=== PATIENT | female | born 1935 | race Caucasian/White ===

== ENCOUNTER 2018-11-05 08:20 | Inpatient (IN) | payer MEDICAID ==
[~2018-11-05] VITALS: Ht 144.8 cm; Wt 81.6 kg
[~2018-11-05 08:20] MED LIST: ACET325T53 PO; CAPT50TA3 PO; PRED20TA PO; [UNRECOGNIZED DRUG - MIXTURE] PO; [UNRECOGNIZED DRUG - OTHER] PO; [UNRECOGNIZED DRUG - OTHER] PO
--- NOTE | 2018-11-05 08:54 | NUR ---
PT BIB SON C/O SOB THAT STARTED AT 0300 TODAY, HX OF PNEUMONIA 1 MONTH AGO. ALERT AND ORIENTED X 4, KOREAN SPEAKING. DENIES ANY PAIN AT THIS TIME. HOOKED TO MONITOR AND PUT ON A GOWN. KEPT COMFORTABLE. WILL COTNINUE TO MONITOR ACCORDINGLY. AWAITING FOR MD FOR EVAL.
--- NOTE | 2018-11-05 08:55 | NUR ---
DR. LONG AT BEDSIDE FOR EVAL.
[2018-11-05] MEDS ORDERED: IPRATROPIUM NEB FS 0.5 MG/2.5 ML AMPUL.NEB NEB ONE (09:00)
[2018-11-05] MEDS ORDERED: ALBUTEROL FS 2.5 MG/3 ML VIAL.NEB CONTNEB ONE (09:00)
[2018-11-05 09:02] LABS: BASOPHILS # (AUTO) 0.1 /CMM (0.0-0.2); BASOPHILS % (AUTO) 0.4 % (0.0-2.0); EOSINOPHILS % (AUTO) 0.8 % (0.0-6.0); HEMATOCRIT 42 % (33-45); HEMOGLOBIN 13.5 g/dL (11.5-14.8); LYMPHOCYTES # (AUTO) 1.5 /CMM (0.8-4.8); LYMPHOCYTES % (AUTO) 10.1 % (20.0-44.0); MEAN CORPUSCULAR HGB CONC 32 g/dl (31.0-36.0); MEAN CORPUSCULAR VOLUME 87 fL (82-100); MONOCYTES # (AUTO) 1.3 /CMM (0.1-1.30); MONOCYTES % (AUTO) 8.4 % (2.0-12.0); NEUTROPHILS # (AUTO) 12.1 /CMM (1.8-8.9); NEUTROPHILS % (AUTO) 80.3 % (43.0-81.0); PLATELET COUNT (AUTO) 219 /CMM (150-450)
[2018-11-05 09:12] LABS: CALCIUM, SERUM 10.9 mg/dL (8.5-10.1); CARBON DIOXIDE 26 mmol/L (21-32); CHLORIDE 105 mmol/L (98-107); CREATININE 1.1 mg/dL (0.6-1.3); GLUCOSE 236 mg/dL (74-106); POTASSIUM 4.6 mmol/L (3.5-5.1); SODIUM SERUM 141 mmol/L (136-145); UREA NITROGEN, BLOOD 23 mg/dL (7-18)
[2018-11-05] MEDS ORDERED: IPRATROPIUM NEB FS 0.5 MG/2.5 ML AMPUL.NEB ONE (09:15)
[2018-11-05] MEDS ORDERED: ALBUTEROL FS 2.5 MG/3 ML VIAL.NEB ONE (09:15)
[2018-11-05 09:24] LABS: ALANINE AMINOTRANSFERASE 20 U/L (12-78); ALBUMIN 3.7 g/dL (3.4-5.0); ALKALINE PHOSPHATASE 59 U/L (46-116); ASPARTATE AMINOTRANSFERASE 17 U/L (15-37); B-TYPE NATRIURETIC PEPTIDE 1650 PG/ML (0-125); BILIRUBIN,DIRECT 0.1 mg/dL (0.0-0.2); BILIRUBIN,TOTAL 0.6 mg/dL (0.2-1.0); TOTAL PROTEIN, SERUM 7.6 g/dL (6.4-8.2)
--- NOTE | 2018-11-05 10:11 | NUR ---
CALLED FOR TELE BED
[2018-11-05] MEDS ORDERED: NIFE60TA69 PO (10:29)
[2018-11-05] MEDS ORDERED: NEBI5TAB8 PO (10:29)
[2018-11-05] MEDS ORDERED: GLIM1TAB2 PO (10:29)
[2018-11-05] MEDS ORDERED: FUROSEMIDE 40 MG/4 ML VIAL IV ONE (10:30)
[2018-11-05] MEDS ORDERED: FUROSEMIDE 40 MG/4 ML VIAL ONE (10:54)
--- NOTE | 2018-11-05 11:32 | NUR ---
REPORT GIVEN TO NICOLE LINDSEY FOR MAURICE , PT GOING TO ROOM 314-1T.
--- NOTE | 2018-11-05 12:21 | NUR ---
WHEELED PATIENT VIA GURNEY ACCOMPANIED BY RN AND EMT VIA ACLS PROTOCOL, IN NO APPARENT DISTRESS. GOING TO ROOM 314-1 T. SON AT BEDSIDE
[2018-11-05 12:30] VITALS: BP 114/61
--- NOTE | 2018-11-05 12:30 | NUR ---
ms rn received a new admission under dr. arreola, awake,alert,oriented x 3,Croatian speaking, came in w/ dx of chf,denies pain at this time,will monitor patient's condition.no sob noted.
--- NOTE | 2018-11-05 13:00 | NUR ---
ms rn son at bedside,all needs attended.
--- NOTE | 2018-11-05 14:00 | NUR ---
ms rn called dr. arreola for orders,awaiting for him to call back.
[2018-11-05 15:50] VITALS: BP 117/60
--- NOTE | 2018-11-05 18:00 | NUR ---
ms evan arreola called back w/ orders made and carried out.
--- NOTE | 2018-11-05 18:38 | NUR ---
ms rn on bed, no distress noted,all needs attended.
[2018-11-05] MEDS ORDERED: DEXTROSE 50%-WATER 50 ML DISP.SYRIN IV PRN (19:00)
[2018-11-05] MEDS ORDERED: FUROSEMIDE 20 MG/2 ML VIAL IV SCH (19:30)
[2018-11-05] MEDS: FUROSEMIDE 20 MG/2 ML VIAL IV SCH (19:48)
[2018-11-05 20:00] VITALS: BP 126/63
[2018-11-05] MEDS ORDERED: ENOXAPARIN SODIUM 30 MG/0.3 ML DISP.SYRIN SQ SCH (21:00)
[2018-11-05] MEDS: METOPROLOL TARTRATE 25 MG TABLET PO SCH (21:28)
[2018-11-05] MEDS ORDERED: IPRATROPIUM NEB FS 0.5 MG/2.5 ML AMPUL.NEB NEB PRN (21:30)
[2018-11-05] MEDS ORDERED: ENOXAPARIN SODIUM 40 MG/0.4 ML DISP.SYRIN SQ SCH (21:30)
[2018-11-05] MEDS ORDERED: CEFTRIAXONE 1 G VIAL ONE (21:43)
[2018-11-05] MEDS: CEFTRIAXONE 1 G in IV D5W 50 ML IV SCH (21:52)
[2018-11-05] MEDS: INSULIN REGULAR, HUMAN 100 UNIT/ML 3 ML VIAL SQ PRN (21:53)
[2018-11-05] MEDS: BLOOD SUGAR DIAGNOSTIC 1 EACH STRIP IN SCH (21:54)
[2018-11-05] MEDS: ALBUTEROL FS 2.5 MG/0.5 ML VIAL.NEB NEB SCH (23:09)
[2018-11-06] VITALS: BP 112/62
[2018-11-06] MEDS: FUROSEMIDE 20 MG/2 ML VIAL IV SCH ×2 (03:48→11:52)
[2018-11-06 04:00] VITALS: BP 134/77
[2018-11-06] MEDS: BLOOD SUGAR DIAGNOSTIC 1 EACH STRIP IN SCH ×4 (06:06→21:32)
--- NOTE | 2018-11-06 06:26 | NUR ---
MORTGAGE LOAN ORIGINATOR NOTES AWAKE & RESPONSIVE. NOT IN ANY DISTRESS. NO SOB NOTED. DENIES ANY PAIN OR DISCOMFORT AT THIS TIME. ON TELE SR @ 75 WITH IVF INFUSING WELL. MONITORED ACCORDINGLY. CALL LIGHT WITHIN REACH. BED IN LOWEST POSITION. SR UP X 3 WITH BED ALARM ON FOR SAFETY. WILL ENDORSE TO NEXT SHIFT.
--- NOTE | 2018-11-06 07:15 | NUR ---
TELE/RN OPENING NOTE THE PATIENT IS RECEIVED IN BED. PATIENT IS ALERT AND ORIENTED X4. PATIENT IS IN ROOM AIR AND DENIES SOB AT THIS TIME. RESPIRATION REGULAR AND UNLABORED. DENIES PAIN AT THIS TIME. THE PATIENT IN NO APPARENT DISTRESS. EXTERNAL TELE MONITOR READING IS SR 64. LAC G 2 PATENT AND SALINE LOCKED. VERBAL CUES ARE GIVEN TO KEEP SAFETY AWARENESS HIGH. BED LOW AND LOCKED. SIDE RAILS UP X3. CALL LIGHT WITHIN REACH. WILL CONTINUE TO MONITOR.
[2018-11-06 07:18] LABS: BASOPHILS # (AUTO) 0.1 /CMM (0.0-0.2); BASOPHILS % (AUTO) 0.7 % (0.0-2.0); EOSINOPHILS % (AUTO) 3.4 % (0.0-6.0); HEMATOCRIT 41 % (33-45); HEMOGLOBIN 13.5 g/dL (11.5-14.8); LYMPHOCYTES # (AUTO) 2.6 /CMM (0.8-4.8); LYMPHOCYTES % (AUTO) 29.1 % (20.0-44.0); MEAN CORPUSCULAR HGB CONC 33 g/dl (31.0-36.0); MEAN CORPUSCULAR VOLUME 87 fL (82-100); MONOCYTES % (AUTO) 10.7 % (2.0-12.0); NEUTROPHILS % (AUTO) 56.1 % (43.0-81.0); PLATELET COUNT (AUTO) 218 /CMM (150-450); RED BLOOD CELL COUNT(AUTO) 4.68 MIL/uL (4.0-5.2); WHITE BLOOD COUNT (AUTO) 8.9 K/uL (4.3-11.0)
[2018-11-06 07:23] LABS: ALANINE AMINOTRANSFERASE 21 U/L (12-78); ALBUMIN 3.5 g/dL (3.4-5.0); ALKALINE PHOSPHATASE 61 U/L (46-116); ASPARTATE AMINOTRANSFERASE 20 U/L (15-37); BILIRUBIN,TOTAL 0.5 mg/dL (0.2-1.0); CALCIUM, SERUM 11.2 mg/dL (8.5-10.1); CARBON DIOXIDE 31 mmol/L (21-32); CHLORIDE 103 mmol/L (98-107); CREATININE 1.1 mg/dL (0.6-1.3); GLUCOSE 134 mg/dL (74-106); MAGNESIUM 1.5 mg/dL (1.8-2.4); POTASSIUM 3.8 mmol/L (3.5-5.1); SODIUM SERUM 142 mmol/L (136-145); TOTAL PROTEIN, SERUM 7.5 g/dL (6.4-8.2); UREA NITROGEN, BLOOD 26 mg/dL (7-18)
[2018-11-06 07:26] LABS: IRON, SERUM 89 ug/dl (50-175)
[2018-11-06] MEDS: ALBUTEROL FS 2.5 MG/0.5 ML VIAL.NEB NEB SCH ×3 (07:56→23:30)
[2018-11-06 08:00] VITALS: BP 116/54
[2018-11-06] MEDS: METOPROLOL TARTRATE 25 MG TABLET PO SCH ×2 (08:28→21:31)
[2018-11-06] MEDS ORDERED: RAMIPRIL 5 MG CAPSULE PO SCH (09:00)
[2018-11-06] MEDS: Magnesium 1GM/D5W 100ML PREMIX 100 ML IV SCH ×2 (11:05→12:11)
--- NOTE | 2018-11-06 11:05 | NUR ---
TELE/RN NOTE PER DR CARTER ADMINISTER 1G IV AT 100ML/HR.
[2018-11-06 12:00] VITALS: BP 123/61
[2018-11-06] MEDS: INSULIN REGULAR, HUMAN 100 UNIT/ML 3 ML VIAL SQ PRN ×2 (12:19→22:52)
--- NOTE | 2018-11-06 12:24 | NUR ---
TELE/RN NOTE BLOOD SUGAR 161 AND 3 UNITS OF REGULAR INSULIN IS ADMINISTERED. PATIENT EATING LUNCH.
[2018-11-06 16:00] VITALS: BP 150/79
[2018-11-06] MEDS ORDERED: RIVAROXABAN 15 MG TABLET PO SCH (17:00)
--- NOTE | 2018-11-06 17:27 | NUR ---
TELE/RN NOTE LAC G20 DISLODGED. INSERTED NEW IV ON RIGHT WRIST G 22 WITH GOOD BLOW FLOW. NO S/S INFILTRATION. SALINE LOCKED. THE PATIENT TOLERATED THE INSERTION WELL.
[2018-11-06] MEDS ORDERED: FUROSEMIDE 20 MG/2 ML VIAL IV SCH (18:00)
--- NOTE | 2018-11-06 18:13 | NUR ---
TELE/RN NOTE THE PATIENT ALERT AND ORIENTED X4 AND SPEAKS INDONESIAN. THE PATIENT ABLE TO MAKE NEEDS KNOWN VERBALLY. DENIES PAIN. RECEIVING OXYGEN AT 2L/MIN VIA NASAL CANNULA AND SATURATION AT 97%. DENIES SOB. RIGHT WRIST G 22 PATENT AND SALINE LOCKED. BED LOW AND LOCKED. SIDE RAILS UP X3. CALL LIGHT WITHIN REACH. WILL ENDORSE TO SEW OUT OPERATOR.
--- NOTE | 2018-11-06 20:12 | NUR ---
Patients speaks Nepali, she lives with family in an apartment with elevator access. She is ambulatory and independent with adl's, has good family support. Son in law reports that patient home O2 was taken back by the vendor. Family will provide ride when discharge. Addendum: 11/06/18 at 2012 by TAMEKA BRIONES RN Amended: Links added.
[2018-11-06 20:24] VITALS: BP 126/58
[2018-11-06] MEDS: CEFTRIAXONE 1 G in IV D5W 50 ML IV SCH (21:32)
[2018-11-06] MEDS ORDERED: ATORVASTATIN 10 MG TABLET PO SCH (22:00)
[2018-11-07] VITALS: BP 134/58
[2018-11-07 04:00] VITALS: BP 142/67
[2018-11-07] MEDS: BLOOD SUGAR DIAGNOSTIC 1 EACH STRIP IN SCH (06:06)
--- NOTE | 2018-11-07 06:17 | NUR ---
WEB MANAGER NOTES AWAKE & RESPONSIVE. NOT IN ANY DISTRESS. NO SOB NOTED. DENIES ANY PAIN OR DISCOMFORT AT THIS TIME. ON TELE SR @ 64 WITH IV-HL PATENT & INTACT. MONITORED ACCORDINGLY. CALL LIGHT WITHIN REACH. BED IN LOWEST POSITION. SR UP X 3 WITH BED ALARM ON FOR SAFETY. WILL ENDORSE TO NEXT SHIFT.
[2018-11-07 07:21] LABS: BASOPHILS % (AUTO) 0.5 % (0.0-2.0); EOSINOPHILS % (AUTO) 3.1 % (0.0-6.0); HEMATOCRIT 41 % (33-45); HEMOGLOBIN 13.6 g/dL (11.5-14.8); LYMPHOCYTES # (AUTO) 2.1 /CMM (0.8-4.8); LYMPHOCYTES % (AUTO) 24.3 % (20.0-44.0); MEAN CORPUSCULAR HGB CONC 33 g/dl (31.0-36.0); MEAN CORPUSCULAR VOLUME 87 fL (82-100); MONOCYTES # (AUTO) 0.9 /CMM (0.1-1.30); MONOCYTES % (AUTO) 9.9 % (2.0-12.0); NEUTROPHILS # (AUTO) 5.4 /CMM (1.8-8.9); NEUTROPHILS % (AUTO) 62.2 % (43.0-81.0); PLATELET COUNT (AUTO) 219 /CMM (150-450); RED BLOOD CELL COUNT(AUTO) 4.72 MIL/uL (4.0-5.2); WHITE BLOOD COUNT (AUTO) 8.6 K/uL (4.3-11.0)
[2018-11-07 07:36] LABS: ALANINE AMINOTRANSFERASE 20 U/L (12-78); ALBUMIN 3.4 g/dL (3.4-5.0); ALKALINE PHOSPHATASE 53 U/L (46-116); ASPARTATE AMINOTRANSFERASE 16 U/L (15-37); B-TYPE NATRIURETIC PEPTIDE 416 PG/ML (0-125); BILIRUBIN,TOTAL 0.4 mg/dL (0.2-1.0); CALCIUM, SERUM 10.9 mg/dL (8.5-10.1); CARBON DIOXIDE 30 mmol/L (21-32); CHLORIDE 104 mmol/L (98-107); CREATININE 1.2 mg/dL (0.6-1.3); GLUCOSE 146 mg/dL (74-106); POTASSIUM 3.9 mmol/L (3.5-5.1); SODIUM SERUM 142 mmol/L (136-145); TOTAL PROTEIN, SERUM 7.4 g/dL (6.4-8.2); UREA NITROGEN, BLOOD 33 mg/dL (7-18)
[2018-11-07] MEDS: ALBUTEROL FS 2.5 MG/0.5 ML VIAL.NEB NEB SCH (07:49)
[2018-11-07 08:00] VITALS: BP 106/59
--- NOTE | 2018-11-07 08:00 | NUR ---
tele process safety management engineer: initial assessment received pt in bed up and about in room. no c/o sob, chest pain, or any discomfort. pt for d'c planning home today, awaiting md order. instructed to call for assistance. will monitor.
[2018-11-07 08:19] VITALS: BP 106/59
[2018-11-07] MEDS: METOPROLOL TARTRATE 25 MG TABLET PO SCH (08:19)
[2018-11-07] MEDS ORDERED: METO25TA20 PO (09:00)
[2018-11-07] MEDS ORDERED: ATOR10TA PO (09:00)
[2018-11-07] MEDS ORDERED: FURO20TA4 PO (09:00)
[2018-11-07] MEDS ORDERED: Blood Sugar Diagnostic IN (09:00)
[2018-11-07] MEDS ORDERED: FUROSEMIDE 20 MG TABLET PO SCH (09:00)
[2018-11-07] MEDS ORDERED: Rivaroxaban PO (09:00)
[2018-11-07] MEDS ORDERED: LOSA1TAB9 PO (09:00)
--- NOTE | 2018-11-07 09:00 | NUR ---
m/s continuous washer operator: md visit seen and examined by dr. arreola with order to d'c home. order acknowledged. pt aware and family to pick her up.
[2018-11-07] MEDS ORDERED: LORA-259 PO (09:08)
[2018-11-07] MEDS ORDERED: CLON0.1T PO (09:08)
[2018-11-07] MEDS ORDERED: AMLO5TAB4 PO (09:08)
[2018-11-07] MEDS ORDERED: ACET325T53 MC (09:08)
--- NOTE | 2018-11-07 11:10 | NUR ---
m/s analysis analyst: notes son here early to pick her up. pt getting ready.
--- NOTE | 2018-11-07 11:30 | NUR ---
m/s casino runner: d'c instructions discharged instructions given by saman to son and pt; both verbalized understanding and will f/u with dr. terry [place] [address] arreola in one to two weeks. son will make appointment as stated. h/l removed with tip intact with no bleeding, no redness, and no swelling noted.
--- NOTE | 2018-11-07 11:40 | NUR ---
m/s admissions manager: discharged discharged home in stable condition with all d'c papers, prescriptions, and valuables via private car, accompanied by son.
== END 2018-11-07 11:45 | disposition home or self-care (01) | DRG 133 ==
LOC: ER 08:21 → TELE 11:47 → MED 11-07 08:18
PROVIDERS: ADMIT Family Medicine; ATTEND Family Medicine
DX: J96.01 Acute respiratory failure with hypoxia (principal); I50.33 Acute on chronic diastolic (congestive) heart failure; E11.22 Type 2 diabetes mellitus with diabetic chronic kidney disease; D68.59 Other primary thrombophilia; E83.42 Hypomagnesemia; I48.0 Paroxysmal atrial fibrillation; I13.0 Hypertensive heart and chronic kidney disease with heart failure and stage 1 through stage 4 chronic kidney disease, or unspecified chronic kidney disease; Q61.3 Polycystic kidney, unspecified; J44.9 Chronic obstructive pulmonary disease, unspecified; N18.9 Chronic kidney disease, unspecified; E78.5 Hyperlipidemia, unspecified; I25.10 Atherosclerotic heart disease of native coronary artery without angina pectoris; M85.80 Other specified disorders of bone density and structure, unspecified site; Z88.8 Allergy status to other drugs, medicaments and biological substances; Z79.4 Long term (current) use of insulin; R00.1 Bradycardia, unspecified; H91.90 Unspecified hearing loss, unspecified ear; G47.33 Obstructive sleep apnea (adult) (pediatric); J40 Bronchitis, not specified as acute or chronic; Z91.14 Patient's other noncompliance with medication regimen
CPT/HCPCS: 36415; 71045-TC; 80048-TC; 80053-TC; 80076-TC; 82962-TC; 83540-TC; 83735-TC; 83880; 84484-TC; 85025-TC; 85730-TC; 87040-TC; 87081-TC; A4606; G0378; J0696; J1650; J1815; J1940; J3475; J7050; J7060; Z7610

== ENCOUNTER 2019-05-09 23:46 | Emergency (ER) | payer BC, MEDICAID ==
[~2019-05-09] VITALS: Ht 152.4 cm; Wt 89.8 kg
[~2019-05-09 23:46] MED LIST changes: +ACET325T53 MC; -ACET325T53 PO; +AMLO5TAB4 PO; +ATOR10TA PO; +Blood Sugar Diagnostic IN; -CAPT50TA3 PO; +CLON0.1T PO; +FURO20TA4 PO; +GLIM1TAB2 PO; +LORA-259 PO; +LOSA1TAB9 PO; +METO25TA20 PO; +NEBI5TAB8 PO; +NIFE60TA69 PO; -PRED20TA PO; +Rivaroxaban PO; -[UNRECOGNIZED DRUG - MIXTURE] PO; -[UNRECOGNIZED DRUG - OTHER] PO
--- NOTE | 2019-05-10 00:07 | NUR ---
PT BIBFAMILY C/O SOB/CP WITH COUGH AND CONGESTION/SORE THROAT X 1 DAY. PT AOX4. SHALLOW BREATHING NOTED. PT ON MONITOR IN BED 4 WITH FAMILY AT BEDSIDE. WILL CONTINUE TO MONITOR.
--- NOTE | 2019-05-10 00:22 | NUR ---
TECH AT BEDSIDE FOR EKG
--- NOTE | 2019-05-10 00:29 | NUR ---
BLOOD DRAWN AND GIVEN TO LAB. INFLUENZA AND STREP SWABS SENT.
--- NOTE | 2019-05-10 00:30 | NUR ---
RADIOLOGY AT BEDSIDE FOR XRAY
[2019-05-10 00:32] LABS: BASOPHILS # (AUTO) 0.1 /CMM (0.0-0.2); BASOPHILS % (AUTO) 0.6 % (0.0-2.0); EOSINOPHILS % (AUTO) 1.5 % (0.0-6.0); HEMATOCRIT 38 % (33-45); HEMOGLOBIN 12.9 g/dL (11.5-14.8); LYMPHOCYTES # (AUTO) 2.1 /CMM (0.8-4.8); LYMPHOCYTES % (AUTO) 16.2 % (20.0-44.0); MEAN CORPUSCULAR HGB CONC 34 g/dl (31.0-36.0); MEAN CORPUSCULAR VOLUME 88 fL (82-100); MONOCYTES % (AUTO) 7.8 % (2.0-12.0); NEUTROPHILS # (AUTO) 9.5 /CMM (1.8-8.9); NEUTROPHILS % (AUTO) 73.9 % (43.0-81.0); PLATELET COUNT (AUTO) 206 /CMM (150-450); RED BLOOD CELL COUNT(AUTO) 4.35 MIL/uL (4.0-5.2); WHITE BLOOD COUNT (AUTO) 12.8 K/uL (4.3-11.0)
[2019-05-10 00:52] LABS: CALCIUM, SERUM 10.6 mg/dL (8.5-10.1); CARBON DIOXIDE 26 mmol/L (21-32); CHLORIDE 107 mmol/L (98-107); CREATININE 1.1 mg/dL (0.6-1.3); GLUCOSE 159 mg/dL (74-106); POTASSIUM 4.6 mmol/L (3.5-5.1); SODIUM SERUM 142 mmol/L (136-145); UREA NITROGEN, BLOOD 32 mg/dL (7-18)
[2019-05-10 01:00] LABS: ALANINE AMINOTRANSFERASE 25 U/L (12-78); ALBUMIN 3.5 g/dL (3.4-5.0); ALKALINE PHOSPHATASE 56 U/L (46-116); ASPARTATE AMINOTRANSFERASE 20 U/L (15-37); B-TYPE NATRIURETIC PEPTIDE 341 PG/ML (0-125); BILIRUBIN,TOTAL 0.4 mg/dL (0.2-1.0); TOTAL PROTEIN, SERUM 7.5 g/dL (6.4-8.2)
[2019-05-10 02:46] VITALS: BP 144/79
--- NOTE | 2019-05-10 02:52 | NUR ---
Patient discharged to home in stable condition. Written and verbal after care instructions given. Patient verbalizes understanding of instruction.IV removed. Catheter intact and site benign. Pressure and 4x4 applied to site. No bleeding noted. PT AMBULATORY WITH STEADY GAIT ACCOMPANIED BY FAMILY.
[2019-05-19] MEDS ORDERED: Digoxin PO (10:58)
[2019-05-19] MEDS ORDERED: DILT180C66 PO (10:58)
[2019-06-16] MEDS ORDERED: DILT240C88 PO (13:40)
[2019-06-16] MEDS ORDERED: METO50TA16 PO (13:40)
== END 2019-05-10 03:08 | disposition home or self-care (01) ==
LOC: ER 23:53
DX: J06.9 Acute upper respiratory infection, unspecified (principal); I10 Essential (primary) hypertension; E11.9 Type 2 diabetes mellitus without complications; Z98.890 Other specified postprocedural states; Z88.8 Allergy status to other drugs, medicaments and biological substances; Z79.899 Other long term (current) drug therapy
CPT/HCPCS: 36415; 71045-TC; 80048-TC; 80076-TC; 83880; 84484-TC; 85025-TC; 85730-TC; 86403-TC; 87070-TC; 87400

== ENCOUNTER 2019-05-13 00:54 | Inpatient (IN) | payer OTHER, BC ==
[~2019-05-13] VITALS: Ht 142.2 cm; Wt 86.6 kg
[2019-05-13] MEDS ORDERED: IPRATROPIUM NEB FS 0.5 MG/2.5 ML AMPUL.NEB ONE (01:20)
[2019-05-13] MEDS ORDERED: ALBUTEROL FS 2.5 MG/3 ML VIAL.NEB ONE (01:20)
[2019-05-13 01:25] LABS: BASOPHILS # (AUTO) 0.1 /CMM (0.0-0.2); BASOPHILS % (AUTO) 0.7 % (0.0-2.0); EOSINOPHILS % (AUTO) 2.1 % (0.0-6.0); HEMATOCRIT 38 % (33-45); HEMOGLOBIN 12.4 g/dL (11.5-14.8); LYMPHOCYTES # (AUTO) 1.9 /CMM (0.8-4.8); LYMPHOCYTES % (AUTO) 13.8 % (20.0-44.0); MEAN CORPUSCULAR HGB CONC 33 g/dl (31.0-36.0); MEAN CORPUSCULAR VOLUME 88 fL (82-100); MONOCYTES # (AUTO) 1.2 /CMM (0.1-1.30); MONOCYTES % (AUTO) 8.4 % (2.0-12.0); NEUTROPHILS # (AUTO) 10.4 /CMM (1.8-8.9); PLATELET COUNT (AUTO) 189 /CMM (150-450); RED BLOOD CELL COUNT(AUTO) 4.27 MIL/uL (4.0-5.2); WHITE BLOOD COUNT (AUTO) 13.9 K/uL (4.3-11.0)
[2019-05-13] MEDS ORDERED: IPRATROPIUM NEB FS 0.5 MG/2.5 ML AMPUL.NEB NEB ONE (01:30)
[2019-05-13] MEDS ORDERED: ALBUTEROL FS 2.5 MG/3 ML VIAL.NEB CONTNEB ONE (01:30)
[2019-05-13 01:35] LABS: CALCIUM, SERUM 10.4 mg/dL (8.5-10.1); CARBON DIOXIDE 23 mmol/L (21-32); CHLORIDE 108 mmol/L (98-107); CREATININE 1.1 mg/dL (0.6-1.3); GLUCOSE 180 mg/dL (74-106); POTASSIUM 4.2 mmol/L (3.5-5.1); SODIUM SERUM 142 mmol/L (136-145); UREA NITROGEN, BLOOD 31 mg/dL (7-18)
[2019-05-13 01:48] LABS: ALANINE AMINOTRANSFERASE 21 U/L (12-78); ALBUMIN 3.3 g/dL (3.4-5.0); ALKALINE PHOSPHATASE 60 U/L (46-116); ASPARTATE AMINOTRANSFERASE 15 U/L (15-37); B-TYPE NATRIURETIC PEPTIDE 690 PG/ML (0-125); BILIRUBIN,DIRECT 0.1 mg/dL (0.0-0.2); BILIRUBIN,TOTAL 0.3 mg/dL (0.2-1.0); TOTAL PROTEIN, SERUM 7.4 g/dL (6.4-8.2)
[2019-05-13 04:05] VITALS: BP 133/77
[2019-05-13 04:50] LABS: ABG BASE EXCESS -1.6 mmol/L; ABG OXYGEN SATURATION 92.5 % (92.0-98.5); ABG PCO2 42.6 mmHg (35.0-45.0); ABG PH 7.364 (7.350-7.450); ABG PO2 63.2 mmHg (75.0-100.0); AaDO2 35.5 mmHg; COHb 0.3 % (0.5-1.5); MetHb 0.2 % (0.0-1.5); SITE, ABG Left Radial; VENT MODE, BG room air
[2019-05-13 08:00] VITALS: BP 146/74
[2019-05-13] MEDS: GLIMEPIRIDE 1 MG TABLET PO SCH (08:43)
[2019-05-13] MEDS: AMLODIPINE BESYLATE 5 MG TABLET PO SCH (08:43)
[2019-05-13] MEDS: HYDROCHLOROTHIAZIDE 25 MG TABLET PO SCH (08:44)
[2019-05-13] MEDS: LOSARTAN POTASSIUM 50 MG TABLET PO SCH (08:44)
[2019-05-13] MEDS ORDERED: ALBUTEROL FS 2.5 MG/0.5 ML VIAL.NEB NEB SCH ×3 (09:00→13:30)
[2019-05-13] MEDS ORDERED: METOPROLOL TARTRATE 25 MG TABLET PO SCH (09:00)
[2019-05-13] MEDS ORDERED: LORAZEPAM 1 MG TABLET PO SCH (09:00)
[2019-05-13] MEDS ORDERED: NIFEdipine XL 60 MG TAB PO SCH (09:00)
[2019-05-13] MEDS ORDERED: FUROSEMIDE 40 MG/4 ML VIAL IV SCH (09:00)
[2019-05-13] MEDS ORDERED: IPRATROPIUM NEB FS 0.5 MG/2.5 ML AMPUL.NEB NEB SCH (10:00)
[2019-05-13] MEDS: methylPREDNISolone SOD SUCC 125 MG/2ML VIAL IV SCH ×3 (10:35→20:00)
[2019-05-13] MEDS ORDERED: LEVOFLOXACIN (500MG) 500 MG TABLET PO ONE (11:00)
[2019-05-13] MEDS ORDERED: DEXTROSE 50%-WATER 50 ML DISP.SYRIN IV PRN (11:00)
[2019-05-13] MEDS: BLOOD SUGAR DIAGNOSTIC 1 EACH STRIP IN SCH ×3 (11:30→21:35)
[2019-05-13] MEDS ORDERED: diphenhydrAMINE HCL 25 MG CAPSULE PO STA (12:18)
[2019-05-13] MEDS: AZITHROMYCIN 250 MG TABLET PO SCH (13:11)
[2019-05-13] MEDS: CEFTRIAXONE 1 G in IV D5W 50 ML IV SCH (13:24)
[2019-05-13] MEDS: INSULIN REGULAR, HUMAN 100 UNIT/ML 3 ML VIAL SQ PRN ×3 (13:26→21:42)
[2019-05-13] MEDS: IPRATROPIUM NEB FS 0.5 MG/2.5 ML AMPUL.NEB NEB SCH ×3 (15:53→22:53)
[2019-05-13] MEDS: ALBUTEROL FS 2.5 MG/0.5 ML VIAL.NEB NEB SCH ×3 (15:54→22:53)
[2019-05-13 16:00] VITALS: BP 120/63
[2019-05-13] MEDS: CLONIDINE HCL 0.1 MG TABLET PO SCH (17:32)
[2019-05-13] MEDS: RIVAROXABAN 15 MG TABLET PO SCH (17:32)
[2019-05-13 20:00] VITALS: BP 117/52
[2019-05-13 20:05] VITALS: BP 117/52
[2019-05-13] MEDS: ATORVASTATIN 10 MG TABLET PO SCH (21:11)
[2019-05-14 00:58] LABS: APPEARANCE,URINE TURBID (CLEAR); BILIRUBIN,URINE NEGATIVE (NEGATIVE); BLOOD, URINE TRACE Ery/uL (NEGATIVE); COLOR,URINE YELLOW (YELLOW); KETONES,URINE TRACE (NEGATIVE); LEUKOCYTE ESTERASE ,URINE 1+ (NEGATIVE); NITRITE, URINE NEGATIVE (NEGATIVE); PH,URINE 5.5 (5.0-8.0); PROTEIN,URINE 2+ mg/dl (NEGATIVE); UGLUCOSE 1+ mg/dL (NEGATIVE)
[2019-05-14 01:00] LABS: BACTERIA,URINE Few /HPF (None Seen); SQUAMOUS EPITHELIAL CELL,UR Few /HPF (None Seen); URINE AMORPHOUS URATE Many /HPF (None Seen)
[2019-05-14] MEDS: ALBUTEROL FS 2.5 MG/0.5 ML VIAL.NEB NEB SCH ×5 (03:14→19:50)
[2019-05-14] MEDS: IPRATROPIUM NEB FS 0.5 MG/2.5 ML AMPUL.NEB NEB SCH ×5 (03:14→19:50)
[2019-05-14] MEDS: methylPREDNISolone SOD SUCC 125 MG/2ML VIAL IV SCH ×3 (04:04→20:11)
[2019-05-14] MEDS: BLOOD SUGAR DIAGNOSTIC 1 EACH STRIP IN SCH ×4 (06:03→21:10)
[2019-05-14] MEDS: INSULIN REGULAR, HUMAN 100 UNIT/ML 3 ML VIAL SQ PRN ×4 (06:39→21:20)
[2019-05-14 06:59] LABS: HEMATOCRIT 37 % (33-45); HEMOGLOBIN 12.3 g/dL (11.5-14.8); LYMPHOCYTES # (AUTO) 0.7 /CMM (0.8-4.8); MEAN CORPUSCULAR HGB CONC 33 g/dl (31.0-36.0); MEAN CORPUSCULAR VOLUME 88 fL (82-100); MONOCYTES # (AUTO) 0.2 /CMM (0.1-1.30); MONOCYTES % (AUTO) 1.6 % (2.0-12.0); NEUTROPHILS # (AUTO) 12.3 /CMM (1.8-8.9); NEUTROPHILS % (AUTO) 93.4 % (43.0-81.0); PLATELET COUNT (AUTO) 199 /CMM (150-450); RED BLOOD CELL COUNT(AUTO) 4.23 MIL/uL (4.0-5.2); WHITE BLOOD COUNT (AUTO) 13.2 K/uL (4.3-11.0)
[2019-05-14 07:24] LABS: ALANINE AMINOTRANSFERASE 20 U/L (12-78); ALBUMIN 3.2 g/dL (3.4-5.0); ALKALINE PHOSPHATASE 51 U/L (46-116); ASPARTATE AMINOTRANSFERASE 14 U/L (15-37); B-TYPE NATRIURETIC PEPTIDE 980 PG/ML (0-125); BILIRUBIN,TOTAL 0.3 mg/dL (0.2-1.0); CALCIUM, SERUM 10.9 mg/dL (8.5-10.1); CARBON DIOXIDE 24 mmol/L (21-32); CHLORIDE 106 mmol/L (98-107); CREATININE 1.9 mg/dL (0.6-1.3); GLUCOSE 256 mg/dL (74-106); MAGNESIUM 1.7 mg/dL (1.8-2.4); PHOSPHORUS 3.7 mg/dL (2.5-4.9); POTASSIUM 4.3 mmol/L (3.5-5.1); SODIUM SERUM 140 mmol/L (136-145); TOTAL PROTEIN, SERUM 7.1 g/dL (6.4-8.2); UREA NITROGEN, BLOOD 45 mg/dL (7-18)
[2019-05-14 08:00] VITALS: BP 119/60
[2019-05-14] MEDS: HYDROCHLOROTHIAZIDE 25 MG TABLET PO SCH (08:42)
[2019-05-14] MEDS: LACTOBACILLUS RHAMNOSUS GG 1 EACH CAP.SPRINK PO SCH ×2 (08:43→16:13)
[2019-05-14] MEDS: GLIMEPIRIDE 1 MG TABLET PO SCH (08:43)
[2019-05-14] MEDS: AMLODIPINE BESYLATE 5 MG TABLET PO SCH (08:43)
[2019-05-14] MEDS: LOSARTAN POTASSIUM 50 MG TABLET PO SCH (08:44)
[2019-05-14 08:50] LABS: CHOLESTEROL 182 mg/dL (<200); HDL CHOLESTEROL 51 mg/dL (40-60); LDL 113 mg/dL (0-99); TRIGLYCERIDES 90 mg/dL (30-150)
[2019-05-14] MEDS ORDERED: Magnesium 1GM/D5W 100ML PREMIX 100 ML IV SCH (09:15)
[2019-05-14] MEDS ORDERED: LEVOFLOXACIN (250MG) 250 MG TABLET PO SCH (11:00)
[2019-05-14] MEDS ORDERED: INSULIN REGULAR, HUMAN 100 UNIT/ML 3 ML VIAL SQ PRN (11:30)
[2019-05-14] MEDS ORDERED: DEXTROSE 50%-WATER 50 ML DISP.SYRIN IV PRN (11:30)
[2019-05-14] MEDS ORDERED: BLOOD SUGAR DIAGNOSTIC 1 EACH STRIP IN SCH (12:00)
[2019-05-14] MEDS: CEPHALEXIN MONOHYDRATE 250 MG CAPSULE PO SCH ×2 (12:13→23:34)
[2019-05-14] MEDS: AZITHROMYCIN 250 MG TABLET PO SCH (13:28)
[2019-05-14] MEDS: CEFTRIAXONE 1 G in IV D5W 50 ML IV SCH (13:28)
[2019-05-14 16:00] VITALS: BP 126/64
[2019-05-14] MEDS: GUAIFENESIN LA 600 MG TABLET.SA PO SCH ×2 (16:13→20:11)
[2019-05-14] MEDS: RIVAROXABAN 15 MG TABLET PO SCH (16:14)
[2019-05-14] MEDS: CLONIDINE HCL 0.1 MG TABLET PO SCH (17:48)
[2019-05-14 20:00] VITALS: BP 120/64
[2019-05-14] MEDS: ATORVASTATIN 10 MG TABLET PO SCH (21:13)
[2019-05-15] MEDS: LORAZEPAM 1 MG TABLET PO PRN (00:08)
[2019-05-15] MEDS: IPRATROPIUM NEB FS 0.5 MG/2.5 ML AMPUL.NEB NEB SCH ×7 (00:27→23:30)
[2019-05-15] MEDS: ALBUTEROL FS 2.5 MG/0.5 ML VIAL.NEB NEB SCH ×6 (00:27→23:30)
[2019-05-15] MEDS ORDERED: AMIODARONE 150 MG/3 ML VIAL IV ONE ×3 (02:33→02:44)
[2019-05-15] MEDS ORDERED: AMIODARONE 150 MG in IV D5W 100 ML IV ONE (03:00)
[2019-05-15] MEDS: AMIODARONE 900 MG in IV D5W 482 ML IV PRN ×2 (03:12→15:56)
[2019-05-15 04:31] VITALS: BP 140/64
[2019-05-15] MEDS: methylPREDNISolone SOD SUCC 125 MG/2ML VIAL IV SCH ×3 (04:33→20:46)
[2019-05-15 06:47] LABS: BASOPHILS % (AUTO) 0.1 % (0.0-2.0); HEMATOCRIT 38 % (33-45); LYMPHOCYTES # (AUTO) 0.6 /CMM (0.8-4.8); LYMPHOCYTES % (AUTO) 2.8 % (20.0-44.0); MEAN CORPUSCULAR HGB CONC 32 g/dl (31.0-36.0); MEAN CORPUSCULAR VOLUME 88 fL (82-100); MONOCYTES # (AUTO) 0.5 /CMM (0.1-1.30); MONOCYTES % (AUTO) 2.4 % (2.0-12.0); NEUTROPHILS # (AUTO) 19.7 /CMM (1.8-8.9); NEUTROPHILS % (AUTO) 94.7 % (43.0-81.0); PLATELET COUNT (AUTO) 209 /CMM (150-450); RED BLOOD CELL COUNT(AUTO) 4.25 MIL/uL (4.0-5.2); WHITE BLOOD COUNT (AUTO) 20.8 K/uL (4.3-11.0)
[2019-05-15 07:14] LABS: CARBON DIOXIDE 22 mmol/L (21-32); CHLORIDE 105 mmol/L (98-107); CREATININE 1.8 mg/dL (0.6-1.3); GLUCOSE 330 mg/dL (74-106); MAGNESIUM 2.1 mg/dL (1.8-2.4); PHOSPHORUS 3.8 mg/dL (2.5-4.9); POTASSIUM 4.3 mmol/L (3.5-5.1); SODIUM SERUM 140 mmol/L (136-145); UREA NITROGEN, BLOOD 58 mg/dL (7-18)
[2019-05-15] MEDS: BLOOD SUGAR DIAGNOSTIC 1 EACH STRIP IN SCH (08:32)
[2019-05-15] MEDS: GLIMEPIRIDE 1 MG TABLET PO SCH (08:33)
[2019-05-15] MEDS: AMLODIPINE BESYLATE 5 MG TABLET PO SCH (08:33)
[2019-05-15] MEDS: LACTOBACILLUS RHAMNOSUS GG 1 EACH CAP.SPRINK PO SCH ×2 (08:33→16:58)
[2019-05-15] MEDS: HYDROCHLOROTHIAZIDE 25 MG TABLET PO SCH (08:33)
[2019-05-15] MEDS: GUAIFENESIN LA 600 MG TABLET.SA PO SCH ×2 (08:33→20:47)
[2019-05-15] MEDS: LOSARTAN POTASSIUM 50 MG TABLET PO SCH (08:34)
[2019-05-15] MEDS: INSULIN REGULAR, HUMAN 100 UNIT/ML 3 ML VIAL SQ PRN ×3 (08:35→16:58)
[2019-05-15 09:02] VITALS: BP 122/74
[2019-05-15] MEDS ORDERED: *INSULIN REGULAR(HUMULIN R)HUM 100 UNIT/ML VIAL SQ PRN (11:00)
[2019-05-15] MEDS ORDERED: DEXTROSE 50%-WATER 50 ML DISP.SYRIN IV PRN (11:00)
[2019-05-15 12:00] VITALS: BP 148/73
[2019-05-15] MEDS: CEPHALEXIN MONOHYDRATE 250 MG CAPSULE PO SCH ×2 (12:46→23:49)
[2019-05-15] MEDS: AZITHROMYCIN 250 MG TABLET PO SCH (12:46)
[2019-05-15] MEDS: CEFTRIAXONE 1 G in IV D5W 50 ML IV SCH (12:46)
[2019-05-15] MEDS: BLOOD SUGAR DIAGNOSTIC 1 EACH STRIP VI SCH ×3 (12:47→22:42)
[2019-05-15 16:00] VITALS: BP 99/60
[2019-05-15] MEDS: CLONIDINE HCL 0.1 MG TABLET PO SCH (17:00)
[2019-05-15] MEDS: RIVAROXABAN 15 MG TABLET PO SCH (17:00)
[2019-05-15 20:00] VITALS: BP 140/70
[2019-05-15] MEDS: ATORVASTATIN 10 MG TABLET PO SCH (20:48)
[2019-05-16] VITALS (7 sets, daily range): BP systolic 124–162; BP diastolic 53–111
[2019-05-16] MEDS: ALBUTEROL FS 2.5 MG/0.5 ML VIAL.NEB NEB SCH ×6 (03:30→23:03)
[2019-05-16] MEDS: IPRATROPIUM NEB FS 0.5 MG/2.5 ML AMPUL.NEB NEB SCH ×6 (03:30→23:03)
[2019-05-16] MEDS: methylPREDNISolone SOD SUCC 125 MG/2ML VIAL IV SCH ×3 (05:15→21:11)
[2019-05-16] MEDS: INSULIN REGULAR, HUMAN 100 UNIT/ML 3 ML VIAL SQ PRN ×4 (05:50→17:04)
[2019-05-16] MEDS: BLOOD SUGAR DIAGNOSTIC 1 EACH STRIP VI SCH ×2 (05:50→12:11)
[2019-05-16 08:33] LABS: BASOPHILS % (AUTO) 0.2 % (0.0-2.0); HEMATOCRIT 42 % (33-45); HEMOGLOBIN 13.7 g/dL (11.5-14.8); LYMPHOCYTES % (AUTO) 4.1 % (20.0-44.0); MEAN CORPUSCULAR HGB CONC 33 g/dl (31.0-36.0); MEAN CORPUSCULAR VOLUME 88 fL (82-100); MONOCYTES # (AUTO) 0.5 /CMM (0.1-1.30); NEUTROPHILS # (AUTO) 22.8 /CMM (1.8-8.9); NEUTROPHILS % (AUTO) 93.7 % (43.0-81.0); PLATELET COUNT (AUTO) 279 /CMM (150-450); RED BLOOD CELL COUNT(AUTO) 4.77 MIL/uL (4.0-5.2); WHITE BLOOD COUNT (AUTO) 24.3 K/uL (4.3-11.0)
[2019-05-16 08:38] LABS: ALANINE AMINOTRANSFERASE 30 U/L (12-78); ALBUMIN 3.7 g/dL (3.4-5.0); ALKALINE PHOSPHATASE 65 U/L (46-116); ASPARTATE AMINOTRANSFERASE 17 U/L (15-37); BILIRUBIN,TOTAL 0.3 mg/dL (0.2-1.0); CALCIUM, SERUM 11.7 mg/dL (8.5-10.1); CARBON DIOXIDE 27 mmol/L (21-32); CHLORIDE 105 mmol/L (98-107); CREATININE 1.5 mg/dL (0.6-1.3); GLUCOSE 183 mg/dL (74-106); PHOSPHORUS 3.6 mg/dL (2.5-4.9); POTASSIUM 3.7 mmol/L (3.5-5.1); SODIUM SERUM 142 mmol/L (136-145); UREA NITROGEN, BLOOD 51 mg/dL (7-18)
[2019-05-16 08:39] LABS: CREATINE KINASE, TOTAL 105 U/L (26-192)
[2019-05-16] MEDS: LOSARTAN POTASSIUM 50 MG TABLET PO SCH (08:53)
[2019-05-16] MEDS: AMLODIPINE BESYLATE 5 MG TABLET PO SCH (08:53)
[2019-05-16] MEDS: LACTOBACILLUS RHAMNOSUS GG 1 EACH CAP.SPRINK PO SCH ×2 (08:54→17:00)
[2019-05-16] MEDS: GLIMEPIRIDE 1 MG TABLET PO SCH (08:54)
[2019-05-16] MEDS: HYDROCHLOROTHIAZIDE 25 MG TABLET PO SCH (08:54)
[2019-05-16] MEDS: GUAIFENESIN LA 600 MG TABLET.SA PO SCH ×2 (08:54→21:12)
[2019-05-16] MEDS ORDERED: AMIODARONE HCL 200 MG TABLET PO SCH (09:30)
[2019-05-16] MEDS: CEPHALEXIN MONOHYDRATE 250 MG CAPSULE PO SCH ×2 (12:19→23:02)
[2019-05-16] MEDS: CEFTRIAXONE 1 G in IV D5W 50 ML IV SCH (12:19)
[2019-05-16] MEDS ORDERED: DEXTROSE 50%-WATER 50 ML DISP.SYRIN IV PRN (12:30)
[2019-05-16] MEDS: BLOOD SUGAR DIAGNOSTIC 1 EACH STRIP IN SCH ×3 (12:32→21:56)
[2019-05-16] MEDS: AMIODARONE HCL 200 MG TABLET PO SCH ×2 (12:54→17:00)
[2019-05-16] MEDS: AZITHROMYCIN 250 MG TABLET PO SCH (13:28)
[2019-05-16] MEDS: RIVAROXABAN 15 MG TABLET PO SCH (17:01)
[2019-05-16] MEDS: CLONIDINE HCL 0.1 MG TABLET PO SCH (18:34)
[2019-05-16] MEDS: ATORVASTATIN 10 MG TABLET PO SCH (21:12)
[2019-05-16] MEDS: *INSULIN REGULAR(HUMULIN R)HUM 100 UNIT/ML VIAL SQ PRN (21:55)
[2019-05-16] MEDS: INSULIN GLARGINE, 100 UNIT/ML CARTRIDGE SQ SCH (21:57)
[2019-05-17] VITALS: BP 106/55
[2019-05-17] MEDS: LORAZEPAM 1 MG TABLET PO PRN (00:08)
[2019-05-17] MEDS: ALBUTEROL FS 2.5 MG/0.5 ML VIAL.NEB NEB SCH ×6 (03:21→23:34)
[2019-05-17] MEDS: IPRATROPIUM NEB FS 0.5 MG/2.5 ML AMPUL.NEB NEB SCH ×6 (03:21→23:34)
[2019-05-17 04:00] VITALS: BP 106/55
[2019-05-17] MEDS: methylPREDNISolone SOD SUCC 125 MG/2ML VIAL IV SCH ×3 (05:43→20:44)
[2019-05-17] MEDS: INSULIN REGULAR, HUMAN 100 UNIT/ML 3 ML VIAL SQ PRN ×4 (06:08→21:18)
[2019-05-17 08:00] VITALS: BP 129/65
[2019-05-17 08:06] LABS: BASOPHILS % (AUTO) 0.1 % (0.0-2.0); HEMATOCRIT 41 % (33-45); HEMOGLOBIN 13.3 g/dL (11.5-14.8); LYMPHOCYTES # (AUTO) 0.7 /CMM (0.8-4.8); LYMPHOCYTES % (AUTO) 3.6 % (20.0-44.0); MEAN CORPUSCULAR HGB CONC 32 g/dl (31.0-36.0); MEAN CORPUSCULAR VOLUME 88 fL (82-100); MONOCYTES # (AUTO) 0.5 /CMM (0.1-1.30); MONOCYTES % (AUTO) 2.7 % (2.0-12.0); NEUTROPHILS # (AUTO) 18.9 /CMM (1.8-8.9); NEUTROPHILS % (AUTO) 93.6 % (43.0-81.0); PLATELET COUNT (AUTO) 253 /CMM (150-450); RED BLOOD CELL COUNT(AUTO) 4.69 MIL/uL (4.0-5.2); WHITE BLOOD COUNT (AUTO) 20.2 K/uL (4.3-11.0)
[2019-05-17 08:18] LABS: CALCIUM, SERUM 10.8 mg/dL (8.5-10.1); CARBON DIOXIDE 24 mmol/L (21-32); CHLORIDE 105 mmol/L (98-107); CREATININE 1.8 mg/dL (0.6-1.3); GLUCOSE 202 mg/dL (74-106); PHOSPHORUS 4.2 mg/dL (2.5-4.9); POTASSIUM 4.1 mmol/L (3.5-5.1); SODIUM SERUM 139 mmol/L (136-145); UREA NITROGEN, BLOOD 67 mg/dL (7-18)
[2019-05-17] MEDS: GUAIFENESIN LA 600 MG TABLET.SA PO SCH ×2 (08:27→20:44)
[2019-05-17] MEDS: LACTOBACILLUS RHAMNOSUS GG 1 EACH CAP.SPRINK PO SCH ×2 (08:27→16:10)
[2019-05-17] MEDS: AMLODIPINE BESYLATE 5 MG TABLET PO SCH (08:28)
[2019-05-17] MEDS: LOSARTAN POTASSIUM 50 MG TABLET PO SCH (08:28)
[2019-05-17] MEDS: HYDROCHLOROTHIAZIDE 25 MG TABLET PO SCH (08:29)
[2019-05-17] MEDS: GLIMEPIRIDE 1 MG TABLET PO SCH (08:29)
[2019-05-17] MEDS: AMIODARONE HCL 200 MG TABLET PO SCH ×3 (08:30→16:10)
[2019-05-17] MEDS: BLOOD SUGAR DIAGNOSTIC 1 EACH STRIP IN SCH ×4 (08:42→21:17)
[2019-05-17 09:04] LABS: LYMPHOCYTES % (MANUAL) 6 % (16-48); MONOCYTES % (MANUAL) 3 % (0-11.0); NEUTROPHILS % (MANUAL) 91 (42-76)
[2019-05-17] MEDS: DIGOXIN INJ 0.5 MG/2 ML AMPUL IV SCH ×2 (11:12→17:17)
[2019-05-17] MEDS ORDERED: FUROSEMIDE 40 MG/4 ML VIAL IV ONE (11:36)
[2019-05-17 12:00] VITALS: BP_SYST 107; BP_SYST 129; BP_DIAS 65; BP_DIAS 70
[2019-05-17] MEDS: AZITHROMYCIN 250 MG TABLET PO SCH (13:00)
[2019-05-17] MEDS: CEFTRIAXONE 1 G in IV D5W 50 ML IV SCH (13:01)
[2019-05-17 16:00] VITALS: BP_SYST 112; BP_DIAS 70; BP_DIAS 78
[2019-05-17] MEDS: RIVAROXABAN 15 MG TABLET PO SCH (16:11)
[2019-05-17] MEDS: CLONIDINE HCL 0.1 MG TABLET PO SCH (17:47)
[2019-05-17 20:00] VITALS: BP_SYST 124; BP_SYST 138; BP_DIAS 68; BP_DIAS 76
[2019-05-17] MEDS: INSULIN GLARGINE, 100 UNIT/ML CARTRIDGE SQ SCH (21:19)
[2019-05-17] MEDS: ATORVASTATIN 10 MG TABLET PO SCH (21:21)
[2019-05-17 23:11] LABS: APPEARANCE,URINE CLEAR (CLEAR); BILIRUBIN,URINE NEGATIVE (NEGATIVE); BLOOD, URINE NEGATIVE Ery/uL (NEGATIVE); COLOR,URINE YELLOW (YELLOW); KETONES,URINE NEGATIVE (NEGATIVE); LEUKOCYTE ESTERASE ,URINE TRACE (NEGATIVE); NITRITE, URINE NEGATIVE (NEGATIVE); PH,URINE 5.5 (5.0-8.0); PROTEIN,URINE NEGATIVE (NEGATIVE); UGLUCOSE NEGATIVE (NEGATIVE); UROBILINOGEN,URINE 0.2 EU/dL (0.2)
[2019-05-17 23:25] LABS: BACTERIA,URINE Few /HPF (None Seen); RBC,URINE 0-2 /HPF (0-2); SQUAMOUS EPITHELIAL CELL,UR Few /HPF (None Seen)
[2019-05-17 23:34] LABS: CREATININE, URINE 22.3 MG/DL (30.0-125.0); URINE TOTAL PROTEIN 4.6 mg/dL (0-11.9)
[2019-05-18] VITALS (7 sets, daily range): BP systolic 117–141; BP diastolic 62–78
[2019-05-18 00:14] LABS: EOSINOPHIL,URINE None Seen
[2019-05-18] MEDS: DIGOXIN INJ 0.5 MG/2 ML AMPUL IV SCH (00:32)
[2019-05-18] MEDS ORDERED: ACETAMINOPHEN 325 MG TABLET PO PRN (02:30)
[2019-05-18] MEDS: LORAZEPAM 1 MG TABLET PO PRN (02:30)
[2019-05-18] MEDS ORDERED: MORPHINE SULFATE INJ 2 MG/ML DISP.SYRIN IV ONE (03:00)
[2019-05-18] MEDS: IPRATROPIUM NEB FS 0.5 MG/2.5 ML AMPUL.NEB NEB SCH ×6 (03:34→23:06)
[2019-05-18] MEDS: ALBUTEROL FS 2.5 MG/0.5 ML VIAL.NEB NEB SCH ×6 (03:34→23:06)
[2019-05-18] MEDS: methylPREDNISolone SOD SUCC 125 MG/2ML VIAL IV SCH ×3 (05:23→21:34)
[2019-05-18 07:32] LABS: BASOPHILS % (AUTO) 0.2 % (0.0-2.0); HEMATOCRIT 42 % (33-45); HEMOGLOBIN 13.6 g/dL (11.5-14.8); LYMPHOCYTES # (AUTO) 0.5 /CMM (0.8-4.8); LYMPHOCYTES % (AUTO) 2.9 % (20.0-44.0); MEAN CORPUSCULAR HGB CONC 33 g/dl (31.0-36.0); MEAN CORPUSCULAR VOLUME 88 fL (82-100); MONOCYTES # (AUTO) 0.6 /CMM (0.1-1.30); MONOCYTES % (AUTO) 3.5 % (2.0-12.0); NEUTROPHILS # (AUTO) 16.9 /CMM (1.8-8.9); NEUTROPHILS % (AUTO) 93.4 % (43.0-81.0); PLATELET COUNT (AUTO) 224 /CMM (150-450); RED BLOOD CELL COUNT(AUTO) 4.74 MIL/uL (4.0-5.2); WHITE BLOOD COUNT (AUTO) 18.2 K/uL (4.3-11.0)
[2019-05-18] MEDS: BLOOD SUGAR DIAGNOSTIC 1 EACH STRIP IN SCH ×4 (08:07→21:34)
[2019-05-18] MEDS: LACTOBACILLUS RHAMNOSUS GG 1 EACH CAP.SPRINK PO SCH ×2 (08:08→16:53)
[2019-05-18] MEDS: AMIODARONE HCL 200 MG TABLET PO SCH (08:08)
[2019-05-18] MEDS: GLIMEPIRIDE 1 MG TABLET PO SCH (08:08)
[2019-05-18 08:09] LABS: ALANINE AMINOTRANSFERASE 27 U/L (12-78); ALBUMIN 2.8 g/dL (3.4-5.0); ALKALINE PHOSPHATASE 48 U/L (46-116); ASPARTATE AMINOTRANSFERASE 16 U/L (15-37); BILIRUBIN,TOTAL 0.3 mg/dL (0.2-1.0); CALCIUM, SERUM 10.5 mg/dL (8.5-10.1); CARBON DIOXIDE 25 mmol/L (21-32); CHLORIDE 104 mmol/L (98-107); CREATININE 1.7 mg/dL (0.6-1.3); GLUCOSE 196 mg/dL (74-106); PHOSPHORUS 4.3 mg/dL (2.5-4.9); POTASSIUM 4.3 mmol/L (3.5-5.1); SODIUM SERUM 140 mmol/L (136-145); TOTAL PROTEIN, SERUM 6.3 g/dL (6.4-8.2); UREA NITROGEN, BLOOD 73 mg/dL (7-18)
[2019-05-18] MEDS: AMLODIPINE BESYLATE 5 MG TABLET PO SCH (08:09)
[2019-05-18] MEDS: GUAIFENESIN LA 600 MG TABLET.SA PO SCH ×2 (08:09→21:34)
[2019-05-18] MEDS: INSULIN REGULAR, HUMAN 100 UNIT/ML 3 ML VIAL SQ PRN ×3 (08:12→17:13)
[2019-05-18 09:07] LABS: BAND % (MANUAL) 2 % (0.0-5.0); LYMPHOCYTES % (MANUAL) 6 % (16-48); MONOCYTES % (MANUAL) 6 % (0-11.0); NEUTROPHILS % (MANUAL) 86 (42-76)
[2019-05-18] MEDS: DILTIAZEM HCL CD 240 MG PO SCH (10:00)
[2019-05-18] MEDS: DIGOXIN 0.125 MG TABLET PO SCH (12:40)
[2019-05-18] MEDS ORDERED: DIGOXIN ELIX UDC 0.25 MG/5 ML UDC PO SCH (13:00)
[2019-05-18] MEDS: RIVAROXABAN 15 MG TABLET PO SCH (16:54)
[2019-05-18] MEDS: ATORVASTATIN 10 MG TABLET PO SCH (21:35)
[2019-05-18] MEDS: INSULIN GLARGINE, 100 UNIT/ML CARTRIDGE SQ SCH (21:41)
[2019-05-18] MEDS: *INSULIN REGULAR(HUMULIN R)HUM 100 UNIT/ML VIAL SQ PRN (21:46)
[2019-05-19] VITALS: BP 121/70
[2019-05-19] MEDS: ALBUTEROL FS 2.5 MG/0.5 ML VIAL.NEB NEB SCH ×4 (03:30→15:30)
[2019-05-19] MEDS: IPRATROPIUM NEB FS 0.5 MG/2.5 ML AMPUL.NEB NEB SCH ×4 (03:30→15:30)
[2019-05-19 04:00] VITALS: BP 125/69
[2019-05-19] MEDS: methylPREDNISolone SOD SUCC 125 MG/2ML VIAL IV SCH (05:05)
[2019-05-19 08:00] VITALS: BP 135/83
[2019-05-19] MEDS: BLOOD SUGAR DIAGNOSTIC 1 EACH STRIP IN SCH ×2 (08:47→12:40)
[2019-05-19] MEDS: INSULIN REGULAR, HUMAN 100 UNIT/ML 3 ML VIAL SQ PRN ×2 (08:49→12:41)
[2019-05-19 08:50] VITALS: BP 135/83
[2019-05-19] MEDS: DILTIAZEM HCL CD 240 MG PO SCH (08:50)
[2019-05-19] MEDS: LACTOBACILLUS RHAMNOSUS GG 1 EACH CAP.SPRINK PO SCH (08:51)
[2019-05-19] MEDS: GUAIFENESIN LA 600 MG TABLET.SA PO SCH (08:51)
[2019-05-19] MEDS: GLIMEPIRIDE 1 MG TABLET PO SCH (08:51)
[2019-05-19] MEDS ORDERED: DILT180C66 PO (10:58)
[2019-05-19] MEDS ORDERED: Digoxin PO (10:58)
[2019-05-19] MEDS: DIGOXIN 0.125 MG TABLET PO SCH (12:46)
[2019-05-19] MEDS ORDERED: methylPREDNISolone SOD SUCC 40 MG/ML VIAL IV SCH (17:00)
[2019-05-20] MEDS ORDERED: DILTIAZEM HCL CD 180 MG PO SCH (09:00)
== END 2019-05-19 16:10 | disposition home or self-care (01) | DRG 194 ==
LOC: ER 00:56 → TELE 03:17 → MED 08:26 → MEDSG1 05-15 02:08 → TELE-TD 05-15 02:18 → TELE1 05-16 10:15 → MEDSG1 05-19 10:38
PROVIDERS: ADMIT Registered Nurse; ATTEND Nurse Practitioner Acute Care
DX: I13.0 Hypertensive heart and chronic kidney disease with heart failure and stage 1 through stage 4 chronic kidney disease, or unspecified chronic kidney disease (principal); N17.0 Acute kidney failure with tubular necrosis; J96.02 Acute respiratory failure with hypercapnia; E11.22 Type 2 diabetes mellitus with diabetic chronic kidney disease; E87.2 Acidosis; E86.0 Dehydration; E44.1 Mild protein-calorie malnutrition; E66.01 Morbid (severe) obesity due to excess calories; J45.901 Unspecified asthma with (acute) exacerbation; I48.91 Unspecified atrial fibrillation; E88.09 Other disorders of plasma-protein metabolism, not elsewhere classified; I50.33 Acute on chronic diastolic (congestive) heart failure; N18.9 Chronic kidney disease, unspecified; N39.0 Urinary tract infection, site not specified; F41.9 Anxiety disorder, unspecified; J45.909 Unspecified asthma, uncomplicated; D72.829 Elevated white blood cell count, unspecified; Z68.41 Body mass index [BMI] 40.0-44.9, adult; Z79.84 Long term (current) use of oral hypoglycemic drugs
CPT/HCPCS: 36415; 36600; 70220-TC; 71045-TC; 76770-TC; 80048-TC; 80053-TC; 80061-TC; 80076-TC; 81000-TC; 82550-TC; 82570-TC; 82962-TC; 83735-TC; 83880; 84100-TC; 84155-TC; 84300-TC; 84484-TC; 85025-TC; 85730-TC; 87081-TC; 87086-TC; 93307-TC; 94799-TC; G0378; J0282; J0696; J1160; J1815; J1940; J2270; J2930; J3475; J7030; J7050; J7060; Q0163

== ENCOUNTER 2019-05-25 15:05 | Inpatient (IN) | payer BC, OTHER ==
[~2019-05-25] VITALS: Ht 152.4 cm; Wt 83.9 kg
[~2019-05-25 15:05] MED LIST changes: +DILT180C66 PO; +Digoxin PO; -NIFE60TA69 PO
--- NOTE | 2019-05-25 15:54 | NUR ---
PT BIB RA 81 WITH A C/O SOB. PT IS ON THE MONITOR AND CONTINUOUS PULSE OX. PT ARRIVED ON 3L O2 VIA NC. PT DOES NOT USE O2 AT HOME. PT WAS 92% ON RA IN THE FIELD. PT'S BLOOD SUGAR IN THE FIELD WAS 318. PT IS LUXEMBOURGISH SPEAKING ONLY. PT'S SON IS AT THE BEDSIDE.
[2019-05-25] MEDS ORDERED: FUROSEMIDE 40 MG/4 ML VIAL ONE ×2 (16:09→19:49)
--- NOTE | 2019-05-25 16:27 | NUR ---
PT REC'D MEDICATION ORDERED.
[2019-05-25] MEDS ORDERED: FUROSEMIDE 40 MG/4 ML VIAL IV ONE ×2 (16:30→19:30)
--- NOTE | 2019-05-25 16:40 | NUR ---
PT AMBULATED TO THE BATHROOM WITH A SLOW STEADY GAIT WITH ASSISTANCE. PT WAS ABLE TO GO INTO THE BATHROOM ON HER OWN.
[2019-05-25 17:09] LABS: BASOPHILS # (AUTO) 0.1 /CMM (0.0-0.2); BASOPHILS % (AUTO) 0.2 % (0.0-2.0); EOSINOPHILS % (AUTO) 0.1 % (0.0-6.0); HEMATOCRIT 38 % (33-45); HEMOGLOBIN 12.4 g/dL (11.5-14.8); LYMPHOCYTES # (AUTO) 1.1 /CMM (0.8-4.8); LYMPHOCYTES % (AUTO) 3.4 % (20.0-44.0); MEAN CORPUSCULAR HGB CONC 32 g/dl (31.0-36.0); MEAN CORPUSCULAR VOLUME 89 fL (82-100); MONOCYTES # (AUTO) 1.8 /CMM (0.1-1.30); MONOCYTES % (AUTO) 5.2 % (2.0-12.0); NEUTROPHILS # (AUTO) 30.7 /CMM (1.8-8.9); NEUTROPHILS % (AUTO) 91.1 % (43.0-81.0); PLATELET COUNT (AUTO) 165 /CMM (150-450); RED BLOOD CELL COUNT(AUTO) 4.33 MIL/uL (4.0-5.2)
[2019-05-25 17:15] LABS: WHITE BLOOD COUNT (AUTO) 33.7 K/uL (4.3-11.0)
--- NOTE | 2019-05-25 17:15 | NUR ---
PT AMBULATED TO THE BATHROOM WITH MINIMAL ASSISTANCE.
--- NOTE | 2019-05-25 17:30 | NUR ---
PT AMBULATED TO THE BATHROOM WITH A SLOW STEADY GAIT. PT'S SON IS WITH THE PT.
[2019-05-25 17:47] LABS: ALANINE AMINOTRANSFERASE 55 U/L (12-78); ALBUMIN 3.2 g/dL (3.4-5.0); ALKALINE PHOSPHATASE 61 U/L (46-116); ASPARTATE AMINOTRANSFERASE 18 U/L (15-37); B-TYPE NATRIURETIC PEPTIDE 3012 PG/ML (0-125); BILIRUBIN,DIRECT 0.1 mg/dL (0.0-0.2); BILIRUBIN,TOTAL 0.6 mg/dL (0.2-1.0); CALCIUM, SERUM 10.7 mg/dL (8.5-10.1); CARBON DIOXIDE 27 mmol/L (21-32); CHLORIDE 104 mmol/L (98-107); CREATININE 1.8 mg/dL (0.6-1.3); SODIUM SERUM 139 mmol/L (136-145); TOTAL PROTEIN, SERUM 6.8 g/dL (6.4-8.2); UREA NITROGEN, BLOOD 55 mg/dL (7-18)
[2019-05-25 17:49] LABS: GLUCOSE 404 mg/dL (74-106); LYMPHOCYTES % (MANUAL) 3 % (16-48); MONOCYTES % (MANUAL) 3 % (0-11.0); NEUTROPHILS % (MANUAL) 94 (42-76)
--- NOTE | 2019-05-25 18:02 | NUR ---
CALLED NURSING SUP. FOR TELE BED
--- NOTE | 2019-05-25 18:38 | NUR ---
TELE 308-2
[2019-05-25] MEDS ORDERED: DILT180C PO (18:42)
[2019-05-25] MEDS ORDERED: METF-440 PO (18:42)
[2019-05-25] MEDS ORDERED: METO-356 PO (18:42)
[2019-05-25] MEDS ORDERED: DIGO0.12 PO (18:42)
[2019-05-25] MEDS ORDERED: PRED20TA PO (18:42)
--- NOTE | 2019-05-25 18:45 | NUR ---
PT USED THE BEDSIDE COMMODE.
--- NOTE | 2019-05-25 18:54 | NUR ---
CALLING REPORT TO TELE NURSE.
--- NOTE | 2019-05-25 18:56 | NUR ---
WILL CALL BACK TO GIVE REPORT TO MANAGER FOOD BEVERAGE RN.
--- NOTE | 2019-05-25 19:02 | NUR ---
BENI BRADYD, SUSHIL PATRICK NP EXCHANGE ENGINEER
--- NOTE | 2019-05-25 19:52 | NUR ---
CALLING REPORT TO TELE NURSE.
[2019-05-25 20:00] VITALS: BP 127/63
--- NOTE | 2019-05-25 20:07 | NUR ---
PT ONLY REC'D 40MG LASIX IN THE ER. SECOND ORDER WAS A DUPLICATE.
[2019-05-25 20:30] VITALS: BP 127/63
--- NOTE | 2019-05-25 20:35 | NUR ---
NEW ADMISSION NOTE PATIENT ADMITTED TO TELEMETRY FOR SOB. PATIENT ALERT AND ORIENTED X3 CROATIAN SPEAKING ONLY. DAUGHTER MAC AT THE BEDSIDE. PATIENT PLACED ON 2LNC AND IS SATURATING AT 98% DENIES SOB AT THIS TIME. PATIENT HR NOTED TO BE BELOW 50 PATIENT DENIES FEELING DIZZY PATIENT IS NOT PERSPIRING. PATIENT REPORTS SHE FEELS SLEEPY. PATIENT ORIENTED TO ROOM. BED DOWN LOCKED SRX2 TELE MONITOR TO BE APPLIED. POC REVIEWED QUESITONS CONCERNS ADDRESSED.
[2019-05-25] MEDS ORDERED: HYDROCODONE/APAP 5/325MG 1 EACH TABLET PO PRN (21:00)
[2019-05-25] MEDS ORDERED: MAGNESIUM HYDROXIDE 30 ML UDC PO PRN (21:00)
[2019-05-25] MEDS ORDERED: HYDROCODONE/APAP 10/325MG 1 EA TABLET PO PRN (21:00)
[2019-05-25] MEDS ORDERED: ONDANSETRON HCL/PF 4 MG/2 ML VIAL IVP PRN (21:00)
[2019-05-25] MEDS ORDERED: Z GUARD REMEDY 2 OZ OINT TP PRN (21:00)
[2019-05-25] MEDS ORDERED: MAG HYDROX/AL HYDROX/SIMETH 30 ML UDC PO PRN (21:00)
[2019-05-25] MEDS ORDERED: ACETAMINOPHEN 325 MG TABLET PO PRN (21:00)
--- NOTE | 2019-05-25 22:00 | NUR ---
ADMISSION INTERVIEW PERFORMED. ADMISSION INTERVIEW PERFORMED WITH DAUGHTER MAC.
[2019-05-25] MEDS ORDERED: VANCOMYCIN 1 GM VIAL ONE (22:35)
[2019-05-25] MEDS ORDERED: PIPERACILLIN /TAZOBACTAM 2.25 G VIAL IV ONE (22:36)
[2019-05-25] MEDS: VANCOMYCIN 1 GM in IV D5W 250ml IV SCH ×2 (22:53→23:00)
--- NOTE | 2019-05-25 23:10 | NUR ---
duplicate vancomycin doses maed off emar. and dose administered as ordered.
[2019-05-26] VITALS: BP 129/46
[2019-05-26] MEDS ORDERED: PIPERACILLIN /TAZOBACTAM 3.375 G in IV D5W 50 ML IV SCH ×2
[2019-05-26] MEDS: PIPERACILLIN /TAZOBACTAM 2.25 G in IV D5W 50 ML IV SCH ×2 (00:38→05:26)
[2019-05-26 04:00] VITALS: BP 145/82
[2019-05-26] MEDS ORDERED: PIPERACILLIN /TAZOBACTAM 2.25 G VIAL IV ONE (05:20)
--- NOTE | 2019-05-26 05:27 | NUR ---
duplicate zosyn non admin. zosyn 2.25 gm administered ivpb as ordered.
[2019-05-26 06:11] LABS: BASOPHILS % (AUTO) 0.2 % (0.0-2.0); EOSINOPHILS % (AUTO) 0.6 % (0.0-6.0); HEMATOCRIT 38 % (33-45); HEMOGLOBIN 12.3 g/dL (11.5-14.8); LYMPHOCYTES # (AUTO) 1.2 /CMM (0.8-4.8); MEAN CORPUSCULAR HGB CONC 33 g/dl (31.0-36.0); MEAN CORPUSCULAR VOLUME 87 fL (82-100); MONOCYTES # (AUTO) 0.8 /CMM (0.1-1.30); MONOCYTES % (AUTO) 4.6 % (2.0-12.0); NEUTROPHILS # (AUTO) 14.6 /CMM (1.8-8.9); NEUTROPHILS % (AUTO) 87.6 % (43.0-81.0); PLATELET COUNT (AUTO) 135 /CMM (150-450); RED BLOOD CELL COUNT(AUTO) 4.31 MIL/uL (4.0-5.2); WHITE BLOOD COUNT (AUTO) 16.6 K/uL (4.3-11.0)
--- NOTE | 2019-05-26 06:27 | NUR ---
rn pm closing note. patient resting in bed in no apparent distress. still on 2lnc. bed down locked iv antibiotics administered as ordered. sr x2 bed alarm active. patient is currently npo. will cont to monitor.
[2019-05-26 06:37] LABS: CHOLESTEROL 159 mg/dL (<200); HDL CHOLESTEROL 46 mg/dL (40-60); LDL 86 mg/dL (0-99); THYROID STIMULATING HORMONE 0.284 uIU/mL (0.358-3.74); TRIGLYCERIDES 149 mg/dL (30-150)
[2019-05-26 06:42] LABS: CALCIUM, SERUM 10.3 mg/dL (8.5-10.1); CARBON DIOXIDE 32 mmol/L (21-32); CHLORIDE 102 mmol/L (98-107); CREATININE 1.5 mg/dL (0.6-1.3); GLUCOSE 296 mg/dL (74-106); MAGNESIUM 1.8 mg/dL (1.8-2.4); PHOSPHORUS 2.7 mg/dL (2.5-4.9); POTASSIUM 4.4 mmol/L (3.5-5.1); SODIUM SERUM 139 mmol/L (136-145); UREA NITROGEN, BLOOD 42 mg/dL (7-18)
--- NOTE | 2019-05-26 07:20 | NUR ---
RN NOTES PT RESTING IN BED COMFORTABLY ASLEEP EASILY AROUSABLE, ABLE TO MAKE NEEDS KNOWN. RESPIRATIONS EVEN AND UNLABORED, SHORTNESS OF BREATH ON EXERTION. PATIENT WITH O2 VIA NC, TOLERATING WELL. IV ACCESS PATENT AND INTACT NO REDNESS OR INFILTRATION NOTED. KEPT CLEAN DRY AND COMFORTABLE CALL LIGHT WITHIN EASY REACH WILL CONTINUE TO MONITOR
[2019-05-26 08:00] VITALS: BP 139/58
[2019-05-26] MEDS: PANTOPRAZOLE 40 MG TABLET.DR PO SCH (08:20)
[2019-05-26] MEDS ORDERED: FEE PK DOSING 1 MIN EA MC ONE (08:29)
[2019-05-26] MEDS ORDERED: DILTIAZEM HCL CD 180 MG PO SCH (09:00)
[2019-05-26] MEDS ORDERED: predniSONE 20 MG TABLET PO SCH (09:00)
[2019-05-26] MEDS: METOPROLOL SUCCINATE 25 MG TAB.SR.24H PO SCH (09:00)
[2019-05-26] MEDS ORDERED: ENOXAPARIN SODIUM 40 MG/0.4 ML DISP.SYRIN SQ SCH (09:00)
[2019-05-26] MEDS: FUROSEMIDE 40 MG/4 ML VIAL IV SCH ×3 (10:11→16:54)
[2019-05-26] MEDS: ENOXAPARIN SODIUM 30 MG/0.3 ML DISP.SYRIN SQ SCH (10:13)
[2019-05-26] MEDS ORDERED: DEXTROSE 50%-WATER 50 ML DISP.SYRIN IV PRN (11:30)
[2019-05-26] MEDS: BLOOD SUGAR DIAGNOSTIC 1 EACH STRIP VI SCH ×3 (11:45→21:29)
[2019-05-26] MEDS: INSULIN REGULAR, HUMAN 100 UNIT/ML 3 ML VIAL SQ PRN ×2 (11:52→16:53)
[2019-05-26] MEDS: PIPERACILLIN /TAZOBACTAM 3.375 G in IV D5W 100 ML IV SCH ×2 (12:56→20:17)
[2019-05-26 15:26] LABS: APPEARANCE,URINE CLEAR (CLEAR); BILIRUBIN,URINE NEGATIVE (NEGATIVE); BLOOD, URINE NEGATIVE Ery/uL (NEGATIVE); COLOR,URINE YELLOW (YELLOW); KETONES,URINE NEGATIVE (NEGATIVE); LEUKOCYTE ESTERASE ,URINE NEGATIVE (NEGATIVE); NITRITE, URINE NEGATIVE (NEGATIVE); PH,URINE 5.5 (5.0-8.0); PROTEIN,URINE NEGATIVE (NEGATIVE); UGLUCOSE 2+ mg/dL (NEGATIVE); UROBILINOGEN,URINE 0.2 EU/dL (0.2)
[2019-05-26 16:00] VITALS: BP 115/48
--- NOTE | 2019-05-26 19:40 | NUR ---
RN NOTES PT RESTING IN BED COMFORTABLY ABLE TO MAKE NEEDS KNOWN. RESPIRATIONS EVEN AND UNLABORED, SHORTNESS OF BREATH ON EXERTION. PATIENT ON ROOM AIR 95% , TOLERATING WELL. IV ACCESS PATENT AND INTACT NO REDNESS OR INFILTRATION NOTED. KEPT CLEAN DRY AND COMFORTABLE CALL LIGHT WITHIN EASY REACH WILL CONTINUE TO MONITOR. ENDORSED TO NEXT SHIFT FOR CONTINUITY OF CARE
[2019-05-26 20:00] VITALS: BP 115/49
--- NOTE | 2019-05-26 20:23 | NUR ---
ROSALIA PM OPENING NOTES BEDSIDE REPORT RECIEVED FROM GUADALUPE LINDSEY. PATIENT IN BED IN NO APPARENT DISTRESS. BREATHING UNLABORED DENIES SOB. ON OXYGEN VIA NC. BED DOWN LOCKED CALL LIGHT IN REACH. BED ALARM ACTIVE. Addendum: 05/26/19 at 2024 by WARD PAK RN EVENT OCCURED AT 1924
[2019-05-26] MEDS: *INSULIN REGULAR(HUMULIN R)HUM 100 UNIT/ML VIAL SQ PRN (21:31)
[2019-05-27] MEDS: PIPERACILLIN /TAZOBACTAM 3.375 G in IV D5W 100 ML IV SCH ×3 (03:07→19:50)
[2019-05-27] MEDS: PANTOPRAZOLE 40 MG TABLET.DR PO SCH (07:02)
[2019-05-27 07:21] LABS: BASOPHILS % (AUTO) 0.2 % (0.0-2.0); EOSINOPHILS % (AUTO) 0.4 % (0.0-6.0); HEMATOCRIT 37 % (33-45); HEMOGLOBIN 12.1 g/dL (11.5-14.8); LYMPHOCYTES # (AUTO) 1.2 /CMM (0.8-4.8); LYMPHOCYTES % (AUTO) 7.6 % (20.0-44.0); MEAN CORPUSCULAR HGB CONC 33 g/dl (31.0-36.0); MEAN CORPUSCULAR VOLUME 87 fL (82-100); MONOCYTES # (AUTO) 0.6 /CMM (0.1-1.30); NEUTROPHILS # (AUTO) 13.4 /CMM (1.8-8.9); NEUTROPHILS % (AUTO) 87.8 % (43.0-81.0); PLATELET COUNT (AUTO) 134 /CMM (150-450); RED BLOOD CELL COUNT(AUTO) 4.24 MIL/uL (4.0-5.2); WHITE BLOOD COUNT (AUTO) 15.3 K/uL (4.3-11.0)
[2019-05-27 07:26] LABS: ALANINE AMINOTRANSFERASE 36 U/L (12-78); ALBUMIN 2.6 g/dL (3.4-5.0); ALKALINE PHOSPHATASE 51 U/L (46-116); ASPARTATE AMINOTRANSFERASE 13 U/L (15-37); BILIRUBIN,TOTAL 0.8 mg/dL (0.2-1.0); CALCIUM, SERUM 10.2 mg/dL (8.5-10.1); CARBON DIOXIDE 34 mmol/L (21-32); CHLORIDE 101 mmol/L (98-107); CREATININE 1.9 mg/dL (0.6-1.3); GLUCOSE 119 mg/dL (74-106); MAGNESIUM 1.6 mg/dL (1.8-2.4); POTASSIUM 3.5 mmol/L (3.5-5.1); SODIUM SERUM 141 mmol/L (136-145); UREA NITROGEN, BLOOD 46 mg/dL (7-18)
[2019-05-27] MEDS: BLOOD SUGAR DIAGNOSTIC 1 EACH STRIP VI SCH ×4 (07:30→21:41)
--- NOTE | 2019-05-27 07:55 | NUR ---
MS RN RECEIVED ON BED, AWAKE,ALERT,ORIENTED X3,NEPALI SPEAKING, NOT IN ANY FOR OF DISTRESS, RESPIRATIONS EVEN AND UNLABORED,NO SOB NOTED, WILL MONITOR PATIENT.
[2019-05-27 08:00] VITALS: BP 111/65
[2019-05-27] MEDS: Magnesium 1GM/D5W 100ML PREMIX 100 ML IV SCH ×2 (08:52→10:28)
[2019-05-27] MEDS: FUROSEMIDE 40 MG/4 ML VIAL IV SCH ×3 (08:52→16:00)
[2019-05-27] MEDS: METOPROLOL SUCCINATE 25 MG TAB.SR.24H PO SCH (08:53)
[2019-05-27] MEDS: ENOXAPARIN SODIUM 30 MG/0.3 ML DISP.SYRIN SQ SCH (08:54)
[2019-05-27] MEDS: predniSONE 20 MG TABLET PO SCH (09:12)
[2019-05-27] MEDS: METFORMIN 500 MG TABLET PO SCH ×2 (09:12→17:45)
--- NOTE | 2019-05-27 09:50 | NUR ---
MS LINDSEY BREAKFAST SERVED,DUE MEDS GIVEN,TOLERATED WELL.
[2019-05-27] MEDS ORDERED: VANCOMYCIN 1.25 GM in IV D5W 500 ML IV SCH (11:00)
--- NOTE | 2019-05-27 11:00 | NUR ---
MS RN NEW IV INSERTED AT LEFT FOREARM W/ GOOD VENOUS RETURN.
[2019-05-27] MEDS: INSULIN REGULAR, HUMAN 100 UNIT/ML 3 ML VIAL SQ PRN ×2 (12:18→18:02)
[2019-05-27 16:00] VITALS: BP 114/82
--- NOTE | 2019-05-27 17:40 | NUR ---
MS LINDSEY BS - 006 - WILL REPEAT LATER.
[2019-05-27] MEDS: LACTOBACILLUS RHAMNOSUS GG 1 EACH CAP.SPRINK PO SCH (17:45)
--- NOTE | 2019-05-27 17:50 | NUR ---
MS RN BS - 587- PATIENT JUST ATE PEACHES, 15 UNITS GIVEN COVERAGE,TEXT FOR ADDITIONAL COVERAGE, WAITING FOR HIM TO TEXT BACK.
[2019-05-27] MEDS ORDERED: FUROSEMIDE 40 MG/4 ML VIAL IV ONE (18:00)
--- NOTE | 2019-05-27 18:51 | NUR ---
MS RN ON BED, NO DISTRESS NOTED,ALL NEEDS ATTENDED. STILL WAITINGFOR DR. SIDHU'S RESPONSE.
[2019-05-27 20:00] VITALS: BP_SYST 114; BP_SYST 115; BP_DIAS 67; BP_DIAS 82
--- NOTE | 2019-05-27 20:00 | NUR ---
MS/RN OPENING NOTES RECEIVED PATIENT IN BED, AWAKE, ALERT, ABLE TO PARTICIPATE WITH CARE, DENIES PAIN, NO GUARDING, SKIN WARM TO TOUCH, RESPIRATIONS EVEN AND UNLABORED, WITH OXYGEN FOR COMFORT NASAL CANULA, ABLE TO AMBULATE WITH SUPERVISION. SELF MOTIVATED,IV LINE ON LEFT WRIST INTACT AND PATENT, BED LOCKED, CALL LIGHTS WITHIN REACH, WILL MONITOR.
[2019-05-27] MEDS: *INSULIN REGULAR(HUMULIN R)HUM 100 UNIT/ML VIAL SQ PRN (21:46)
[2019-05-28] MEDS: PIPERACILLIN /TAZOBACTAM 3.375 G in IV D5W 100 ML IV SCH ×2 (03:51→12:30)
[2019-05-28] MEDS: BLOOD SUGAR DIAGNOSTIC 1 EACH STRIP VI SCH ×3 (06:05→17:57)
[2019-05-28 06:30] LABS: BASOPHILS # (AUTO) 0.1 /CMM (0.0-0.2); BASOPHILS % (AUTO) 0.4 % (0.0-2.0); HEMATOCRIT 39 % (33-45); HEMOGLOBIN 12.8 g/dL (11.5-14.8); LYMPHOCYTES # (AUTO) 0.7 /CMM (0.8-4.8); LYMPHOCYTES % (AUTO) 3.2 % (20.0-44.0); MEAN CORPUSCULAR HGB CONC 33 g/dl (31.0-36.0); MEAN CORPUSCULAR VOLUME 86 fL (82-100); MONOCYTES # (AUTO) 0.6 /CMM (0.1-1.30); MONOCYTES % (AUTO) 2.9 % (2.0-12.0); NEUTROPHILS # (AUTO) 19.4 /CMM (1.8-8.9); NEUTROPHILS % (AUTO) 93.5 % (43.0-81.0); PLATELET COUNT (AUTO) 157 /CMM (150-450); RED BLOOD CELL COUNT(AUTO) 4.47 MIL/uL (4.0-5.2); WHITE BLOOD COUNT (AUTO) 20.7 K/uL (4.3-11.0)
[2019-05-28] MEDS: *INSULIN REGULAR(HUMULIN R)HUM 100 UNIT/ML VIAL SQ PRN (06:37)
[2019-05-28 07:03] LABS: ALANINE AMINOTRANSFERASE 35 U/L (12-78); ALBUMIN 2.7 g/dL (3.4-5.0); ALKALINE PHOSPHATASE 51 U/L (46-116); ASPARTATE AMINOTRANSFERASE 12 U/L (15-37); BILIRUBIN,TOTAL 0.5 mg/dL (0.2-1.0); CALCIUM, SERUM 10.4 mg/dL (8.5-10.1); CARBON DIOXIDE 32 mmol/L (21-32); CHLORIDE 98 mmol/L (98-107); GLUCOSE 212 mg/dL (74-106); MAGNESIUM 2.2 mg/dL (1.8-2.4); PHOSPHORUS 3.7 mg/dL (2.5-4.9); POTASSIUM 4.1 mmol/L (3.5-5.1); SODIUM SERUM 137 mmol/L (136-145); TOTAL PROTEIN, SERUM 6.4 g/dL (6.4-8.2); UREA NITROGEN, BLOOD 56 mg/dL (7-18)
--- NOTE | 2019-05-28 07:14 | NUR ---
308-2 MS/RN NOTES PATIENT ABLE TO SLEPP DURING THE NIGHT, RESPIRATIONS EVEN AND UNLABORED, MONITORED FOR ANY S/S OF HYPO/HYPERGLYCEMIA, PARTICIPATED WITH CARE, ASSISTED AT ALL TIMES FOR SAFETY. BED LOCKED AND ALARMED, CALL LIGHTS WITHIN REACH, PROVIDED AND OFFERED FLUIFDS AND SNAKCS WILL MONITOR.
--- NOTE | 2019-05-28 07:40 | NUR ---
ms rn received on bed, awake,alert,oriented x3,not in any form of distress, respirations even and unlabored,no sob noted, lungs are clear,abdomen soft,positive bowel sounds,denies pain at this time, will monitor patient's condition.
[2019-05-28 08:00] VITALS: BP 119/40
[2019-05-28] MEDS ORDERED: HEPARIN SODIUM, PORCINE 5000 UNITS/1 ML VIAL SQ SCH (09:00)
[2019-05-28] MEDS: METOPROLOL SUCCINATE 25 MG TAB.SR.24H PO SCH (09:00)
--- NOTE | 2019-05-28 09:20 | NUR ---
ms gordon breakfast served,due meds given,tolerated well.
[2019-05-28] MEDS: predniSONE 20 MG TABLET PO SCH (09:41)
[2019-05-28] MEDS: METFORMIN 500 MG TABLET PO SCH ×2 (09:41→17:57)
[2019-05-28] MEDS: LACTOBACILLUS RHAMNOSUS GG 1 EACH CAP.SPRINK PO SCH ×2 (09:41→17:57)
[2019-05-28] MEDS: PANTOPRAZOLE 40 MG TABLET.DR PO SCH (09:44)
--- NOTE | 2019-05-28 11:00 | NUR ---
ms rn was seen by rick montero/ kartik to go home today.
[2019-05-28] MEDS: INSULIN REGULAR, HUMAN 100 UNIT/ML 3 ML VIAL SQ PRN ×2 (12:37→17:59)
[2019-05-28 16:00] VITALS: BP 148/63
--- NOTE | 2019-05-28 17:39 | NUR ---
ms evan bs-[id number] - 15 units sq given, texted w/ no additional order given.
--- NOTE | 2019-05-28 18:20 | NUR ---
ms rn patient went home accompanied by son, no distress noted.
== END 2019-05-28 18:42 | disposition home or self-care (01) | DRG 133 ==
LOC: ER 15:09 → TELE 19:52 → MED 05-26 10:22
PROVIDERS: ADMIT Nurse Practitioner Acute Care; ATTEND Internal Medicine
DX: J96.01 Acute respiratory failure with hypoxia (principal); J15.9 Unspecified bacterial pneumonia; I50.33 Acute on chronic diastolic (congestive) heart failure; D68.59 Other primary thrombophilia; N17.0 Acute kidney failure with tubular necrosis; E11.22 Type 2 diabetes mellitus with diabetic chronic kidney disease; E11.65 Type 2 diabetes mellitus with hyperglycemia; E27.8 Other specified disorders of adrenal gland; I48.91 Unspecified atrial fibrillation; E86.0 Dehydration; I13.0 Hypertensive heart and chronic kidney disease with heart failure and stage 1 through stage 4 chronic kidney disease, or unspecified chronic kidney disease; E83.52 Hypercalcemia; D72.829 Elevated white blood cell count, unspecified; N18.9 Chronic kidney disease, unspecified; E78.5 Hyperlipidemia, unspecified; E66.9 Obesity, unspecified; F41.9 Anxiety disorder, unspecified; Z68.36 Body mass index [BMI] 36.0-36.9, adult; R00.1 Bradycardia, unspecified; E05.90 Thyrotoxicosis, unspecified without thyrotoxic crisis or storm; K43.9 Ventral hernia without obstruction or gangrene; K44.9 Diaphragmatic hernia without obstruction or gangrene; N28.1 Cyst of kidney, acquired; K80.20 Calculus of gallbladder without cholecystitis without obstruction; Z79.84 Long term (current) use of oral hypoglycemic drugs; Z79.52 Long term (current) use of systemic steroids
CPT/HCPCS: 36415; 71045-TC; 80048-TC; 80053-TC; 80061-TC; 80076-TC; 80162-TC; 81000-TC; 82962-TC; 83605-TC; 83690-TC; 83735-TC; 83880; 83970; 84100-TC; 84439-TC; 84443-TC; 84484-TC; 85025-TC; 85730-TC; 87040-TC; 87081-TC; 87086-TC; 97110-TC; 97116-TC; 97530-TC; G0378; J1644; J1650; J1815; J1940; J2543; J3370; J3475; J3490; J7050; J7060

== ENCOUNTER 2019-06-14 20:32 | Inpatient (IN) | payer OTHER ==
[~2019-06-14] VITALS: Ht 154.9 cm; Wt 85.3 kg
[~2019-06-14 20:32] MED LIST changes: -ACET325T53 MC; -AMLO5TAB4 PO; -ATOR10TA PO; -Blood Sugar Diagnostic IN; -CLON0.1T PO; +DIGO0.12 PO; +DILT180C PO; -DILT180C66 PO; -Digoxin PO; -FURO20TA4 PO; -GLIM1TAB2 PO; -LORA-259 PO; -LOSA1TAB9 PO; +METF-440 PO; +METO-356 PO; -METO25TA20 PO; -NEBI5TAB8 PO; +PRED20TA PO; -Rivaroxaban PO; -[UNRECOGNIZED DRUG - OTHER] PO
--- NOTE | 2019-06-14 20:40 | NUR ---
PT [id number] C/O SOB X 3 HOURS AND RED RASH X 4 DAYS. PER FAMILY, PT HAS HAD THE RASH AFTER TAKING AMOXICILLIN. PT AXO4. PT PUT ON THE ELECTRIC SHIPYARD OPERATOR AND PULSE OX. RESPIRATION TACHYPNIC AND PT BRADYCARDIC ON THE MONITOR.
--- NOTE | 2019-06-14 21:00 | NUR ---
CONSERVATION ENGINEER AT BEDSIDE. LABS DRAWN AND SENT TO LAB.
[2019-06-14 21:18] LABS: BASOPHILS # (AUTO) 0.1 /CMM (0.0-0.2); BASOPHILS % (AUTO) 0.2 % (0.0-2.0); EOSINOPHILS % (AUTO) 0.7 % (0.0-6.0); HEMATOCRIT 41 % (33-45); HEMOGLOBIN 13.2 g/dL (11.5-14.8); LYMPHOCYTES % (AUTO) 7.3 % (20.0-44.0); MEAN CORPUSCULAR HGB CONC 32 g/dl (31.0-36.0); MEAN CORPUSCULAR VOLUME 91 fL (82-100); MONOCYTES % (AUTO) 3.8 % (2.0-12.0); NEUTROPHILS # (AUTO) 23.9 /CMM (1.8-8.9); PLATELET COUNT (AUTO) 164 /CMM (150-450); RED BLOOD CELL COUNT(AUTO) 4.53 MIL/uL (4.0-5.2); WHITE BLOOD COUNT (AUTO) 27.1 K/uL (4.3-11.0)
[2019-06-14] MEDS ORDERED: ONDANSETRON HCL/PF - ER 4 MG/2 ML VIAL IV ONE (21:30)
[2019-06-14] MEDS ORDERED: diphenhydrAMINE HCL 50 MG/ML VIAL IV ONE (21:30)
[2019-06-14] MEDS ORDERED: FENTANYL PF 100MCG/2ML AMPUL IV ONE (21:30)
[2019-06-14] MEDS ORDERED: IV NS 0.9% 250 ML BAG IV ONE (21:30)
[2019-06-14 21:32] LABS: CALCIUM, SERUM 10.6 mg/dL (8.5-10.1); CARBON DIOXIDE 19 mmol/L (21-32); CHLORIDE 97 mmol/L (98-107); CREATININE 3.5 mg/dL (0.6-1.3); SODIUM SERUM 131 mmol/L (136-145); UREA NITROGEN, BLOOD 45 mg/dL (7-18)
[2019-06-14 21:38] LABS: GLUCOSE 455 mg/dL (74-106); POTASSIUM 6.3 mmol/L (3.5-5.1)
[2019-06-14] MEDS ORDERED: diphenhydrAMINE HCL 50 MG/ML VIAL ONE (21:48)
[2019-06-14 21:49] LABS: MAGNESIUM 1.6 mg/dL (1.8-2.4); THYROID STIMULATING HORMONE 0.839 uIU/mL (0.358-3.74)
[2019-06-14] MEDS ORDERED: FENTANYL PF 100MCG/2ML AMPUL ONE (21:49)
[2019-06-14] MEDS ORDERED: INSULIN REGULAR, HUMAN 100 UNIT/ML 10 ML VIAL ONE (21:49)
[2019-06-14] MEDS ORDERED: ONDANSETRON HCL/PF 4 MG/2 ML VIAL ONE (21:50)
[2019-06-14 21:56] LABS: LIPASE 257 U/L (73-393)
[2019-06-14 21:59] LABS: BAND % (MANUAL) 2 % (0.0-5.0); EOSINOPHILS % (MANUAL) 1 % (0-4); LYMPHOCYTES % (MANUAL) 10 % (16-48); MONOCYTES % (MANUAL) 3 % (0-11.0); NEUTROPHILS % (MANUAL) 84 (42-76)
[2019-06-14] MEDS ORDERED: ALBUTEROL FS 2.5 MG/0.5 ML VIAL.NEB NEB ONE (22:00)
[2019-06-14] MEDS ORDERED: INSULIN REGULAR, HUMAN 100 UNIT/ML 10 ML VIAL IV ONE (22:00)
[2019-06-14] MEDS ORDERED: ALBUTEROL FS 2.5 MG/0.5 ML VIAL.NEB ONE (22:06)
--- NOTE | 2019-06-14 22:09 | NUR ---
PT TAKEN TO CT VIA [facility].
[2019-06-14] MEDS ORDERED: ASPIRIN 81 MG TAB.CHEW PO ONE (23:00)
[2019-06-14] MEDS ORDERED: FUROSEMIDE 20 MG/2 ML VIAL IV ONE (23:00)
[2019-06-14] MEDS ORDERED: ASPIRIN 81 MG TAB.CHEW ONE (23:01)
[2019-06-14] MEDS ORDERED: FUROSEMIDE 20 MG/2 ML VIAL ONE (23:01)
--- NOTE | 2019-06-14 23:19 | NUR ---
HIPOLITO 107
[2019-06-14 23:28] LABS: ALBUMIN 2.7 g/dL (3.4-5.0); BILIRUBIN,DIRECT 0.1 mg/dL (0.0-0.2); BILIRUBIN,TOTAL 0.3 mg/dL (0.2-1.0)
--- NOTE | 2019-06-14 23:37 | NUR ---
REPORT GIVEN TO NOAH LINDSEY FOR MAURICE.
--- NOTE | 2019-06-14 23:50 | NUR ---
HIPOLITO RN NOTE PATIENT RECEIVED FROM ER IN [facility] AT BEDSIDE. PATIENT A/O X 4 ABLE TO MAKE NEEDS KNOWN WITH ETHIOPIAN/ ARMERNIAN.PATIENT ON 3L NC SATURATION 96%. PATIENT HAS 20 G IN R HAND DIFFICULT TO FLUSH 22 G IN R FA PLACED PATIENT INTACT NO S/S OF INFECTION/INFILTRATION. PATIENT NOTED TO HAVE GENERALIZED RED RASH FROM CHEST TO THIGHS. MD AWARE. PATIENT AND FAMILY ORIENTED TO UNIT AND POC DISCUSSED WITH PATIENT. SAFETY PRECAUTIONS IN PLACE. USE OF CALL LIGHT INSTRUCTIONS GIVEN TO FAMILY AND PATIENT. BED LOCKED IN LOWEST POSITION. RN WILL CONTINUE TO MONITOR.
[2019-06-15] VITALS: BP 113/49
[2019-06-15] MEDS ORDERED: DEXTROSE 50%-WATER 50 ML DISP.SYRIN IV PRN (00:30)
[2019-06-15] MEDS ORDERED: Z GUARD REMEDY 2 OZ OINT TP PRN (00:30)
[2019-06-15] MEDS ORDERED: SODIUM POLYSTYRENE SULFONATE 15 G/60 ML BOTTLE PO ONE ×2 (00:30→02:00)
[2019-06-15] MEDS ORDERED: ACETAMINOPHEN 325 MG TABLET PO PRN (00:30)
[2019-06-15] MEDS ORDERED: ONDANSETRON HCL/PF 4 MG/2 ML VIAL IVP PRN (00:30)
[2019-06-15 00:45] LABS: BILIRUBIN,DIRECT 0.1 mg/dL (0.0-0.2); BILIRUBIN,TOTAL 0.3 mg/dL (0.2-1.0)
--- NOTE | 2019-06-15 01:10 | NUR ---
MACHINE OPERATOR REPLANTER NOTE TRAINING ENGINEER HOMA AWARE OF PATIENT JUMP IN LACTIC ACID TO 4.5 ORDERED 500 NS BOLUS
[2019-06-15] MEDS: BLOOD SUGAR DIAGNOSTIC 1 EACH STRIP IN SCH ×5 (01:21→21:43)
[2019-06-15] MEDS ORDERED: IV NS 0.9% 500 ML IV ONE (01:30)
[2019-06-15] MEDS: SUCRALFATE 1 G/10 ML UDC PO SCH ×4 (01:34→17:36)
[2019-06-15] MEDS ORDERED: FUROSEMIDE 40 MG/4 ML VIAL IV ONE (02:00)
--- NOTE | 2019-06-15 02:00 | NUR ---
HIPOLITO RN NOTE COATING OPERATOR HOMA PRESENT AT BEDSIDE FOR SKIN BIOPSY
--- NOTE | 2019-06-15 02:00 | NUR ---
HIPOLITO RN NOTE 500 NS BOLUS COMPLETED
[2019-06-15] MEDS ORDERED: PANTOPRAZOLE 40 MG VIAL IV SCH (02:30)
--- NOTE | 2019-06-15 02:30 | NUR ---
HIPOLITO RN NOTE SKIN BIOPSY DELIVERED TO LAB FORM FILLED OUT
[2019-06-15] MEDS: *INSULIN REGULAR(HUMULIN R)HUM 100 UNIT/ML VIAL SQ PRN ×3 (02:45→21:42)
[2019-06-15] MEDS: methylPREDNISolone SOD SUCC 125 MG/2ML VIAL IV SCH ×4 (02:52→16:37)
[2019-06-15] MEDS ORDERED: PANTOPRAZOLE 40 MG VIAL ONE (03:00)
[2019-06-15 04:00] VITALS: BP 96/63
[2019-06-15] MEDS ORDERED: SUCRALFATE 1 G/10 ML UDC PO SCH (06:00)
--- NOTE | 2019-06-15 06:40 | NUR ---
HIPOLITO RN NOTE PATIENT TOLERATED THE NIGHT. NO S/S OF ACUTE CHANGES AT THIS TIME. PATIENT REMAINS CUBA ON THE MONITOR AND IS ASYMPTOMATIC. PATIENT DENIES CHEST PAIN. PATIENT HAS SOB WITH EXERTION. RN WILL ENDORSE POC TO AM FOR MAURICE.
[2019-06-15 07:06] LABS: BASOPHILS # (AUTO) 0.1 /CMM (0.0-0.2); BASOPHILS % (AUTO) 0.4 % (0.0-2.0); HEMATOCRIT 36 % (33-45); HEMOGLOBIN 11.7 g/dL (11.5-14.8); LYMPHOCYTES # (AUTO) 0.9 /CMM (0.8-4.8); LYMPHOCYTES % (AUTO) 4.4 % (20.0-44.0); MEAN CORPUSCULAR HGB CONC 33 g/dl (31.0-36.0); MEAN CORPUSCULAR VOLUME 90 fL (82-100); MONOCYTES # (AUTO) 0.7 /CMM (0.1-1.30); NEUTROPHILS # (AUTO) 19.9 /CMM (1.8-8.9); NEUTROPHILS % (AUTO) 92.2 % (43.0-81.0); PLATELET COUNT (AUTO) 164 /CMM (150-450); RED BLOOD CELL COUNT(AUTO) 4.04 MIL/uL (4.0-5.2); WHITE BLOOD COUNT (AUTO) 21.6 K/uL (4.3-11.0)
[2019-06-15 07:17] LABS: CARBON DIOXIDE 20 mmol/L (21-32); CHLORIDE 104 mmol/L (98-107); CREATININE 3.8 mg/dL (0.6-1.3); MAGNESIUM 1.6 mg/dL (1.8-2.4); PHOSPHORUS 3.2 mg/dL (2.5-4.9); POTASSIUM 5.7 mmol/L (3.5-5.1); SODIUM SERUM 137 mmol/L (136-145); UREA NITROGEN, BLOOD 48 mg/dL (7-18)
[2019-06-15 07:28] LABS: GLUCOSE 428 mg/dL (74-106)
--- NOTE | 2019-06-15 07:30 | NUR ---
HIPOLITO RN NOTES RECEIVED PT IN BED, NOTED GENERALIZED SKIN RASH. PT REQUESTING TO USE TOILET. ASSISTED TO COMMODE. PT HAD LARGE LOOSE BM. PT ON ROOM AIR WITH O2 SAT 94%. ON TELE SB 56. BS ELEVATED AND REPORTED BY LAB TO BE 428MG/DL. WILL NOTIFY . BP AND TEMP WNL. WILL CONT TO MONITOR.
[2019-06-15 08:00] VITALS: BP 129/42
--- NOTE | 2019-06-15 08:36 | NUR ---
HIPOLITO RN NOTES SCANNED HS BARCODE 20U GIVEN; INSTEAD OF AC.
[2019-06-15 08:39] LABS: BAND % (MANUAL) 8 % (0.0-5.0); LYMPHOCYTES % (MANUAL) 2 % (16-48); MONOCYTES % (MANUAL) 4 % (0-11.0); NEUTROPHILS % (MANUAL) 86 (42-76)
[2019-06-15] MEDS ORDERED: IV NS 0.9% 1,000 ML BAG IV PRN (09:00)
[2019-06-15] MEDS ORDERED: predniSONE 20 MG TABLET PO SCH (09:00)
[2019-06-15 09:35] LABS: APPEARANCE,URINE Cloudy (CLEAR); BILIRUBIN,URINE SMALL (NEGATIVE); BLOOD, URINE Trace-intact Ery/uL (NEGATIVE); KETONES,URINE Trace (NEGATIVE); LEUKOCYTE ESTERASE ,URINE Trace (NEGATIVE); NITRITE, URINE Negative (NEGATIVE); PROTEIN,URINE 30 mg/dl (NEGATIVE); UGLUCOSE 500 MG/DL mg/dL (NEGATIVE); UROBILINOGEN,URINE 0.2 EU/dL (0.2)
[2019-06-15 09:39] LABS: COLOR,URINE Dark Yellow (YELLOW)
[2019-06-15 09:46] LABS: BACTERIA,URINE Moderate /HPF (None Seen); SQUAMOUS EPITHELIAL CELL,UR Few /HPF (None Seen); WBC,URINE 20-50 /HPF (0-3); YEAST,URINE Few /HPF (None Seen)
[2019-06-15] MEDS ORDERED: IV NS 0.9% 1,000 ML IV PRN (10:00)
[2019-06-15] MEDS ORDERED: ENOXAPARIN SODIUM 80 MG/0.8 ML DISP.SYRIN SQ SCH (10:30)
[2019-06-15] MEDS: INSULIN GLARGINE, 100 UNIT/ML CARTRIDGE SQ SCH (10:37)
[2019-06-15] MEDS ORDERED: Magnesium 1GM/D5W 100ML PREMIX 100 ML IV SCH (11:30)
[2019-06-15 12:00] VITALS: BP 145/59
[2019-06-15] MEDS: NEXIUM 40 MG VIAL IV SCH ×2 (12:58→21:41)
[2019-06-15] MEDS: INSULIN REGULAR, HUMAN 100 UNIT/ML 3 ML VIAL SQ PRN ×2 (13:01→17:37)
[2019-06-15 14:59] LABS: CALCIUM, SERUM 10.6 mg/dL (8.5-10.1); CARBON DIOXIDE 18 mmol/L (21-32); CHLORIDE 103 mmol/L (98-107); CREATININE 3.3 mg/dL (0.6-1.3); GLUCOSE 193 mg/dL (74-106); POTASSIUM 5.1 mmol/L (3.5-5.1); SODIUM SERUM 136 mmol/L (136-145); UREA NITROGEN, BLOOD 47 mg/dL (7-18)
[2019-06-15 16:00] VITALS: BP 134/55
[2019-06-15] MEDS: Magnesium 1GM/D5W 100ML PREMIX 100 ML IV SCH ×2 (16:37→17:36)
[2019-06-15] MEDS ORDERED: RIVAROXABAN 15 MG TABLET PO SCH (17:00)
[2019-06-15 18:11] LABS: CREATININE, URINE 115.2 MG/DL (30.0-125.0); URINE TOTAL PROTEIN 35.9 mg/dL (0-11.9)
[2019-06-15 19:07] LABS: APPEARANCE,URINE SL CLOUDY (CLEAR); BILIRUBIN,URINE NEGATIVE (NEGATIVE); BLOOD, URINE NEGATIVE Ery/uL (NEGATIVE); COLOR,URINE YELLOW (YELLOW); KETONES,URINE NEGATIVE (NEGATIVE); LEUKOCYTE ESTERASE ,URINE NEGATIVE (NEGATIVE); NITRITE, URINE NEGATIVE (NEGATIVE); PROTEIN,URINE NEGATIVE (NEGATIVE); UGLUCOSE 1+ mg/dL (NEGATIVE); UROBILINOGEN,URINE 0.2 EU/dL (0.2)
[2019-06-15 19:52] LABS: BACTERIA,URINE Few /HPF (None Seen); RBC,URINE 0-2 /HPF (0-2); SQUAMOUS EPITHELIAL CELL,UR Moderate /HPF (None Seen); WBC,URINE 0-2 /HPF (0-3)
[2019-06-15 19:55] LABS: EOSINOPHIL,URINE None Seen
[2019-06-15 20:00] VITALS: BP 124/45
--- NOTE | 2019-06-15 21:09 | NUR ---
HIPOLITO RN OPENING NOTES RECEIVED REPORT FROM INOCENCIO LINDSEY. PATIENT A/A/O X3, MOSTLY TRISTANIAN-SPEAKING BUT STILL ABLE TO MAKE SOME NEEDS KNOWN & STATE PAIN. BREATHING EVEN & UNLABORED, TOLERATING O2 @ 2LPM VIA NC. DENIES ANY SOB OR DIFFICULTY BREATHING. ON TELE W/ SINUS RHYTHM & INVERTED T WAVE, HR 70S. RIGHT FOREARM IV #22 INTACT & PATENT W/ DRESSING CDI & IVF NS INFUSING WELL @ 75 ML/HR. DENIES ANY PAIN OR DISCOMFORT @ THIS TIME. ABLE TO AMBULATE W/ STEADY GAIT BUT SAFETY MEASURES IN PLACE W/ SIDE RAILS UP & BED ALARM ON. CALL LIGHT PLACED WITHIN REACH & INSTRUCTED TO CALL FOR ASSISTANCE. WILL CONTINUE TO MONITOR CLOSELY.
[2019-06-15] MEDS ORDERED: INSULIN REGULAR, HUMAN 100 UNIT/ML 10 ML VIAL IV ONE (23:00)
--- NOTE | 2019-06-15 23:00 | NUR ---
HIPOLITO RN NOTES NOTED PATIENT'S BS = 443. GAVE 10 UNITS REGULAR INSULIN PER SLIDING SCALE & CALLED MARTA LUTHER. AFTER 10 UNITS, BS = 394 & RECEIVED NEW ORDER TO GIVE ADDITIONAL 10 UNITS. NEW ORDER NOTED & CARRIED OUT. WILL CONTINUE TO MONITOR.
[2019-06-16] VITALS (7 sets, daily range): BP systolic 109–160; BP diastolic 45–75
[2019-06-16] MEDS: SUCRALFATE 1 G/10 ML UDC PO SCH ×4 (00:20→18:33)
[2019-06-16] MEDS ORDERED: IPRATROPIUM NEB FS 0.5 MG/2.5 ML AMPUL.NEB NEB PRN (05:30)
[2019-06-16] MEDS ORDERED: ALBUTEROL FS 2.5 MG/3 ML VIAL.NEB NEB PRN (05:30)
[2019-06-16] MEDS ORDERED: NITROGLYCERIN 0.4 MG/TAB BOTTLE SL PRN (05:30)
--- NOTE | 2019-06-16 05:30 | NUR ---
HIPOLITO RN NOTES AFTER X1 SUBLINGUAL, BP LOWERED TO 109/51 & PATIENT STATED NO MORE CHEST PAIN OR DISCOMFORT. STILL A-FIB ON TELE MONITOR & BREATHING TX IN PROGRESS.
[2019-06-16 05:46] LABS: BASOPHILS # (AUTO) 0.1 /CMM (0.0-0.2); BASOPHILS % (AUTO) 0.2 % (0.0-2.0); HEMATOCRIT 36 % (33-45); HEMOGLOBIN 11.7 g/dL (11.5-14.8); LYMPHOCYTES # (AUTO) 1.4 /CMM (0.8-4.8); LYMPHOCYTES % (AUTO) 5.5 % (20.0-44.0); MEAN CORPUSCULAR HGB CONC 33 g/dl (31.0-36.0); MEAN CORPUSCULAR VOLUME 88 fL (82-100); MONOCYTES # (AUTO) 0.5 /CMM (0.1-1.30); MONOCYTES % (AUTO) 2.1 % (2.0-12.0); NEUTROPHILS # (AUTO) 22.9 /CMM (1.8-8.9); NEUTROPHILS % (AUTO) 92.2 % (43.0-81.0); PLATELET COUNT (AUTO) 171 /CMM (150-450); RED BLOOD CELL COUNT(AUTO) 4.08 MIL/uL (4.0-5.2); WHITE BLOOD COUNT (AUTO) 24.9 K/uL (4.3-11.0)
[2019-06-16] MEDS ORDERED: NITROGLYCERIN 30 GM TUBE TP SCH (06:00)
--- NOTE | 2019-06-16 06:00 | NUR ---
HIPOLITO RN NOTES PATIENT C/O CHEST TIGHTNESS & SOB W/ EKG REVEALING A-FIB & ACUTE ISCHEMIA, HR LOW 100S. CALLED MARTA LUTHER & RECEIVED NEW ORDERS FOR NITRO SUBLINGUAL PRN, NITRO PASTE Q6H & PRN BREATHING TX. NEW ORDERS NOTED & CARRIED OUT. WILL CONTINUE TO MONITOR PATIENT CLOSELY. Addendum: 06/16/19 at 0707 by LISSA NÚÑEZ RN LATE ENTRY
[2019-06-16] MEDS ORDERED: NITROGLYCERIN PACKET 1 GM PACKET ONE (06:14)
[2019-06-16 06:23] LABS: CHOLESTEROL 158 mg/dL (<200); CREATINE KINASE, TOTAL 31 U/L (26-192); HDL CHOLESTEROL 28 mg/dL (40-60); LDL 101 mg/dL (0-99); THYROID STIMULATING HORMONE 0.178 uIU/mL (0.358-3.74); TRIGLYCERIDES 220 mg/dL (30-150)
[2019-06-16] MEDS: NITROGLYCERIN PACKET 1 GM PACKET TOP SCH ×3 (06:31→18:00)
[2019-06-16 06:36] LABS: ALANINE AMINOTRANSFERASE 39 U/L (12-78); ALBUMIN 2.7 g/dL (3.4-5.0); ALKALINE PHOSPHATASE 93 U/L (46-116); ASPARTATE AMINOTRANSFERASE 21 U/L (15-37); BILIRUBIN,TOTAL 0.2 mg/dL (0.2-1.0); CALCIUM, SERUM 10.6 mg/dL (8.5-10.1); CARBON DIOXIDE 22 mmol/L (21-32); CHLORIDE 105 mmol/L (98-107); CREATININE 2.3 mg/dL (0.6-1.3); GLUCOSE 101 mg/dL (74-106); MAGNESIUM 2.3 mg/dL (1.8-2.4); PHOSPHORUS 2.7 mg/dL (2.5-4.9); POTASSIUM 3.9 mmol/L (3.5-5.1); SODIUM SERUM 139 mmol/L (136-145); UREA NITROGEN, BLOOD 47 mg/dL (7-18)
[2019-06-16] MEDS ORDERED: FUROSEMIDE 40 MG/4 ML VIAL IV ONE (07:00)
[2019-06-16] MEDS ORDERED: METOPROLOL TARTRATE 25 MG TABLET PO ONE (07:00)
--- NOTE | 2019-06-16 07:00 | NUR ---
RN HIPOLITO OPENING NOTES RECEIVED BEDSIDE REPORT. PATIENT A/O X4 SITTING IN CHAIR. PRYDEINIG SPEAKING. NO SIGNS OR SYMPTOMS OF RESPIRATORY DISTRESS ON 2 LTRS NASAL CANNULA. NO C/O PAIN AT THIS TIME ONLY OF ITCHING. WILL F/U WITH MD. AMBULATORY IN ROOM IV TO L HAND # 22 SALINE LOCK AT THIS TIME ORDER FOR NS @ 75 ML/HR. AFIB ON MONITOR 130'S. SAFETY PRECAUTIONS IN PLACE BED IN LOW POSITION CALL LIGHT WITHIN REACH WILL CONT TO MONITOR ACCORDINGLY
--- NOTE | 2019-06-16 07:09 | NUR ---
HIPOLITO RN NOTES PATIENT NOTED TO BE A-FIB W/ RVR ON TELE MONITOR, HR 130-140S ACCOMPANIED WITH SOB. INCREASED O2 VIA NC & CALLED DR MARTA LUTHER & RECEIVED NEW ORDERS FOR CARDIZEM 240MG PO X1, METOPROLOL 25MG PO X1 & LASIX 40MG IVP X1. NEW ORDERS NOTED & CARRIED OUT. ENDORSED TO AM NURSE FOR MAURICE.
--- NOTE | 2019-06-16 07:36 | NUR ---
HIP[facility] OPENING NOTES RECEIVED REPORT FROM [facility] SHIFT NURSE. PATIENT SITTING AT BEDSIDE, ALERT AND ORIENTED X 3. BREATHING EVEN & UNLABORED, NO SIGNS AND SYMPTOMS OF RESPIRATORY DISTRESS. TOLERATING O2 VIA NASAL CANULA AT 2L/MIN. DENIES ANY SOB OR DIFFICULTY BREATHING. LEFT FOREARM IV #22 INTACT & PATENT W/ DRESSING, NO SIGNS AND SYMPTOMS OF INFILTRATION. BILATERAL PITTING EDEMA ON FEET +2. WILL CONTINUE TO MONITOR CLOSELY.
[2019-06-16] MEDS: BLOOD SUGAR DIAGNOSTIC 1 EACH STRIP IN SCH ×4 (08:09→21:19)
[2019-06-16] MEDS: DILTIAZEM HCL CD 240 MG PO SCH (08:09)
[2019-06-16] MEDS: methylPREDNISolone SOD SUCC 125 MG/2ML VIAL IV SCH ×3 (08:12→18:39)
[2019-06-16] MEDS: NEXIUM 40 MG VIAL IV SCH ×2 (08:12→21:14)
[2019-06-16] MEDS: HEPARIN SODIUM, PORCINE 5000 UNITS/1 ML VIAL SQ SCH ×2 (08:13→21:20)
[2019-06-16] MEDS: INSULIN GLARGINE, 100 UNIT/ML CARTRIDGE SQ SCH (08:14)
[2019-06-16] MEDS: INSULIN REGULAR, HUMAN 100 UNIT/ML 3 ML VIAL SQ PRN ×3 (08:16→18:40)
--- NOTE | 2019-06-16 09:38 | NUR ---
HIPOL[facility]O PROGRESS NOTE BLOOD PRESSURE RECHECKED 30 MIN AFTER ADMINISTRATION OF LASIX, CARDIZEM, AND LOPRESSOR. BP 109/55 MMhG.
[2019-06-16] MEDS: METOPROLOL TARTRATE 50 MG TABLET PO SCH ×2 (12:35→18:00)
[2019-06-16] MEDS ORDERED: DILT240C88 PO (13:40)
[2019-06-16] MEDS ORDERED: METO50TA16 PO (13:40)
[2019-06-16] MEDS ORDERED: diphenhydrAMINE HCL 25 MG CAPSULE PO PRN (14:00)
--- NOTE | 2019-06-16 19:25 | NUR ---
[facility]IP[facility]ITO RN CLOSING NOTE GAVE REPORT TO [facility] SHIFT NURSE TRINA. PATIENT SITTING AT BEDSIDE, ALERT AND ORIENTED X 3. GUYANESE/TURKS AND [place] ISLANDER SPEAKING. DENIES ANY SOB, NO RESPIRATORY DISTRESS NOTED. PT TOLERATED 02 VIA NASAL CANULA WELL, HOWEVER TOOK IT OFF THROUGHOUT THE DAY DUE TO FREQUENTLY AMBULATING. IV SALINE LOCK ON LEFT HAND, 22 CALLIE, INTACT, SITE IS CLEAN AND DRY, NO SIGNS AND SYMPTOMS OF INFILTRATION NOTED. NO SIGNS AND SYMPTOMS OF HYPO/HYPERGLYCEMIA. 6PM DOSE OF METOPROLOL AND NITROGLYCERIN PATCH WAS HELD DUE TO LOW BLOOD PRESSURE 109/45 mmHg. REINFOCED SAFETY PRECAUTION TEACHINGS, BED IS IN LOW POSITION, LOCKED, CALL LIGHT INSIGHT.
--- NOTE | 2019-06-16 19:41 | NUR ---
REPORT ENDORSED TO NOC
[2019-06-16] MEDS: *INSULIN REGULAR(HUMULIN R)HUM 100 UNIT/ML VIAL SQ PRN (21:27)
[2019-06-17] VITALS: BP 135/60
[2019-06-17] MEDS: METOPROLOL TARTRATE 50 MG TABLET PO SCH ×2 (00:06→05:55)
[2019-06-17] MEDS: NITROGLYCERIN PACKET 1 GM PACKET TOP SCH ×2 (00:06→05:55)
[2019-06-17] MEDS: SUCRALFATE 1 G/10 ML UDC PO SCH ×2 (00:06→05:57)
[2019-06-17 04:00] VITALS: BP 138/62
--- NOTE | 2019-06-17 07:33 | NUR ---
[facility] RN OPENING NOTES RECEIVED REPORT FROM [facility] SHIFT NURSE TRINA. PATIENT LAYING IN BED, ON ROOM AIR, TOLERATING WELL, DENIES ANY SOB, NO ACUTE RESPIRATORY DISTRESS NOTED. ALERT AND ORIENTED X 3, MONGOLIAN/[place]IZEN OF [place] SPEAKING. PERIPHERAL IV ON L HAND CALLIE 22, NS RUNNING 75ML/HR. NO SIGNS AND SYMPTOMS OF INFILTRATION NOTED. WILL CONTINUE TO MONITOR PATIENT CLOSELY. PROBABLE DISCHARGE TODAY.
[2019-06-17 08:00] VITALS: BP 122/61
[2019-06-17] MEDS: BLOOD SUGAR DIAGNOSTIC 1 EACH STRIP IN SCH (08:06)
[2019-06-17] MEDS: methylPREDNISolone SOD SUCC 125 MG/2ML VIAL IV SCH (08:07)
[2019-06-17] MEDS: NEXIUM 40 MG VIAL IV SCH (08:07)
[2019-06-17] MEDS: HEPARIN SODIUM, PORCINE 5000 UNITS/1 ML VIAL SQ SCH (08:07)
[2019-06-17] MEDS: INSULIN GLARGINE, 100 UNIT/ML CARTRIDGE SQ SCH (08:09)
[2019-06-17 08:17] VITALS: BP 122/61
[2019-06-17] MEDS: DILTIAZEM HCL CD 240 MG PO SCH (08:17)
--- NOTE | 2019-06-17 08:39 | NUR ---
SHOWED TELE MONITOR READING WITH PAUSE ON 06/16/[address] FLOOD WHO ORDERED TO HOLD METOPROLOL FOR NOW.
--- NOTE | 2019-06-17 11:54 | NUR ---
patient wanted to go home ,son at bedside,paged dr. liz and notified that dr. brian adjusted discharge meds.son instructed not to take lopressor and digoxin and will continue cardizem cd 240mg daily as ordered,primary rn call in prescription to patient pharmacy of choice.
--- NOTE | 2019-06-17 11:54 | NUR ---
PATIENT IN CLOTHES PACING THE HALLWAY, WITH DESIRE TO GO HOME. PAGED DR BARNETT, AWAITING RESPONSE. CALLED DR FLOOD, ORDERED FOR DISCHARGE WITH INSTRUCTIONS TO HOLD LOPRESSOR, TO FOLLOW UP IN A WEEK FROM TODAY (June)
--- NOTE | 2019-06-17 12:00 | NUR ---
FACILITATED DISCHARGE ORDER, PT REFUSED SKIN ASSESSMENT AND PHOTO, ALL DISCHARGE AND MEDICATION INSTRUCTIONS GIVEN TO SON, JYOTHI, REMOVED IV LINE AND ID BAND, ALL BELONGING ACCOUNTED FOR AND GIVEN BACK TO PATIENT, SON INSTRUCTED TO MANAGER OF COMPLIANCE MEDICATION FROM PHARMACY ([facility])
--- NOTE | 2019-06-17 12:00 | NUR ---
ASKED PATIENT IF SHE'LL BE BE OKAY WITH SKIN ASSESSMENT BEFORE GETTING WHEEL OUT BUT PATIENT REFUSED
--- NOTE | 2019-06-17 12:05 | NUR ---
PATIENT WHEELED OUT OF THE UNIT BY MYSELF, ACCOMPANIED BY SON.V
[2019-06-17 12:07] LABS: *SPE ALBUMIN 2.7 g/dL (2.9-4.4); *SPE ALPHA-1-GLOBULIN 0.3 g/dL (0.0-0.4); *SPE ALPHA-2-GLOBULIN 0.8 g/dL (0.4-1.0); *SPE BETA GLOBULIN 0.8 g/dL (0.7-1.3); *SPE GLOBULIN, TOTAL 2.6 g/dL (2.2-3.9); *SPE M-SPIKE Not Observed g/dL (Not Observed); *SPEGAMMA GLOBULIN 0.7 g/dL (0.4-1.8)
[2019-06-17 13:06] LABS: PTH, INTACT 106 pg/mL (15-65)
[2019-06-18 07:06] LABS: RENIN, PLASMA 1.966 ng/mL/hr (0.167-5.380)
== END 2019-06-17 12:05 | disposition home or self-care (01) | DRG 469 ==
LOC: ER 20:33 → TELE-TD 23:23 → TELE1 06-15 00:34 → TELE-TD 06-15 02:06 → MEDSG1 06-17 08:40
PROVIDERS: ADMIT Nurse Practitioner Acute Care; ATTEND Family Medicine
PROC: 0JBF3ZX Excision of Left Upper Arm Subcutaneous Tissue and Fascia, Percutaneous Approach, Diagnostic (ICD-10-PCS; principal; 2019-06-15)
DX: N17.0 Acute kidney failure with tubular necrosis (principal); I50.33 Acute on chronic diastolic (congestive) heart failure; E87.2 Acidosis; E11.65 Type 2 diabetes mellitus with hyperglycemia; E11.22 Type 2 diabetes mellitus with diabetic chronic kidney disease; D68.59 Other primary thrombophilia; E83.42 Hypomagnesemia; I13.0 Hypertensive heart and chronic kidney disease with heart failure and stage 1 through stage 4 chronic kidney disease, or unspecified chronic kidney disease; E87.5 Hyperkalemia; I48.0 Paroxysmal atrial fibrillation; N18.9 Chronic kidney disease, unspecified; E78.5 Hyperlipidemia, unspecified; K57.30 Diverticulosis of large intestine without perforation or abscess without bleeding; E83.52 Hypercalcemia; E87.1 Hypo-osmolality and hyponatremia; I25.10 Atherosclerotic heart disease of native coronary artery without angina pectoris; D72.829 Elevated white blood cell count, unspecified; K29.00 Acute gastritis without bleeding; K44.9 Diaphragmatic hernia without obstruction or gangrene; Z79.84 Long term (current) use of oral hypoglycemic drugs; K43.9 Ventral hernia without obstruction or gangrene; J42 Unspecified chronic bronchitis; T49.0X5A Adverse effect of local antifungal, anti-infective and anti-inflammatory drugs, initial encounter; T46.0X5A Adverse effect of cardiac-stimulant glycosides and drugs of similar action, initial encounter; N28.1 Cyst of kidney, acquired; L27.0 Generalized skin eruption due to drugs and medicaments taken internally; Y92.009 Unspecified place in unspecified non-institutional (private) residence as the place of occurrence of the external cause; L57.8 Other skin changes due to chronic exposure to nonionizing radiation
CPT/HCPCS: 36415; 71045-TC; 76770-TC; 80048-TC; 80053-TC; 80061-TC; 80076-TC; 80162-TC; 81000-TC; 82088; 82247-TC; 82248-TC; 82533; 82550-TC; 82570-TC; 82962-TC; 83605-TC; 83690-TC; 83735-TC; 83880; 83970; 84100-TC; 84155; 84155-TC; 84165; 84244; 84300-TC; 84443-TC; 84484-TC; 85025-TC; 87040-TC; 87081-TC; 87086-TC; 87186-TC; 88305-TC; 97116-TC; 97530-TC; C9113; G0378; J1200; J1644; J1650; J1815; J1940; J2405; J2930; J3010; J3475; J7030; J7040; J7050